=== PATIENT | female | born 1955 | race Caucasian/White ===

== ENCOUNTER 2018-10-28 12:54 | Outpatient (REF) | payer MEDICARE, OTHER, SELFPAY ==
--- NOTE | 2018-10-28 10:55 | PAPFT_PTH ---
PATIENT: Jolie Matos LOC: [facility] U#:[id number] AGE/SX: 63/F ROOM: RE10/28/[address]: DEMOND Mathew : 1955 BED: DIS: 10/28/2018 SPEC #: [id number] RECD: 10/28/18 13:13 STATUS: ADRIANA REJeny #: [id number] ADRIAN: 10/28/18 10:[address]: Anita Palmer DEPT: [facility] Cytology RECD BY: Nena Murray ENTERED: 10/28/18 13:14 SP TYPE: PAPFT ROBERT DR: Vasquez Alvarez, DO Tissues: 1 - CX/ENDOCX FOR PAP SMEARS Procedures: PAP THIN PREP/UVM Screening Comments: [id number]
== END 2018-10-28 13:14 ==
LOC: LBN 12:54
PROVIDERS: PCP Emergency Medicine; Visit Provider Nurse Practitioner Family
DX: Z12.4 Encounter for screening for malignant neoplasm of cervix (principal)
CPT/HCPCS: 88142

== ENCOUNTER 2018-11-09 00:36 | Outpatient (CLI) | payer MEDICARE, OTHER, SELFPAY ==
--- NOTE | 2018-11-09 07:30 | DI.MAMMO_ITS ---
SYMPTOM/DIAGNOSIS: SCREENING, Z12.31 MAMMOGRAMS: Mammograms were interpreted according to the usual protocol including computer analysis with CAD system, tomosynthesis and C view imaging. Comparison is made with prior examinations. Breast density, Category B. No suspicious masses or microcalcifications are seen. There is no definite evidence of malignancy. IMPRESSION: Negative mammogram. Routine screening is recommended. Category 1. MQSA ASSESSMENT OF FINDINGS: Negative. Category 1. Patient will receive a letter notifying them of these results. BI-RADS category B. There are scattered areas of fibroglandular density.
== END 2018-11-09 00:56 ==
PROVIDERS: PCP Emergency Medicine; Visit Provider Nurse Practitioner Family
DX: Z12.31 Encounter for screening mammogram for malignant neoplasm of breast (principal)
CPT/HCPCS: 77063; 77067

== ENCOUNTER 2019-05-29 20:08 | Outpatient (REF) | payer MEDICARE, OTHER, SELFPAY | END 2019-05-29 20:28 | LOC: LBN 20:08 | PROVIDERS: PCP Emergency Medicine; Visit Provider Nurse Practitioner | DX: N39.0 Urinary tract infection, site not specified (principal) | CPT/HCPCS: 87086 ==

== ENCOUNTER 2020-06-26 11:49 | Outpatient (REF) | payer MEDICARE, OTHER, SELFPAY ==
[2020-06-26 22:53] LABS: Calculated LDL 122 mg/dL (<100); Cholesterol 207 mg/dL (<200); HDL Cholesterol 66 mg/dL (40-60); Triglyceride 95 mg/dL (<150); Vitamin B12 304 pg/mL (193-986)
== END 2020-06-26 12:09 ==
LOC: LBN 11:49
PROVIDERS: PCP Emergency Medicine; Visit Provider Emergency Medicine
DX: E53.8 Deficiency of other specified B group vitamins (principal); Z00.00 Encounter for general adult medical examination without abnormal findings
CPT/HCPCS: 80061; 82607

== ENCOUNTER 2020-09-05 00:37 | Outpatient (CLI) | payer MEDICARE, OTHER, SELFPAY ==
--- NOTE | 2020-09-05 07:15 | DI.RAD_ITS ---
EXAM: XR LUMBAR SPINE COMPLETE CLINICAL HISTORY: low back pain,m53.3. TECHNIQUE: 2D digital imaging was performed. COMPARISON: No exams were available for comparison FINDINGS: There are 5 lumbar type vertebral bodies. There is normal alignment. No spondylolysis or spondyloli sthesis is present. There is disc space narrowing at L5-S1. There are endplate osteophytes at L5-S1 . Degenerative changes of the facets are present at multiple levels in the lumbar spine. No acute f racture or dislocation. The bones are normally mineralized. Surgical clips are seen in the right up per quadrant suggesting prior cholecystectomy. IMPRESSION: Mild degenerative changes in the lumbar spine. DATA REPOSITORY: RADIATION DOSE DELIVERED:
--- NOTE | 2020-09-05 07:15 | DI.RAD_ITS ---
EXAM: XR SACROILIAC JOINTS CLINICAL HISTORY: sacral pain,m53.3. TECHNIQUE: 2D digital imaging was performed. COMPARISON: No exams were available for comparison FINDINGS: BONES: No acute fracture is present. No bony destructive lesion is seen. JOINTS: Mild degenerative changes at the L5-S1 disc space. The sacroiliac joints are well maintained . No ankylosis or erosions are seen. SOFT TISSUE: Normal. IMPRESSION: Mild degenerative changes at the L5-S1 disc space. DATA REPOSITORY: RADIATION DOSE DELIVERED:
== END 2020-09-05 00:57 ==
PROVIDERS: PCP Emergency Medicine; Visit Provider Emergency Medicine
DX: M47.817 Spondylosis without myelopathy or radiculopathy, lumbosacral region (principal)
CPT/HCPCS: 72110; 72202

== ENCOUNTER 2020-11-05 00:56 | Outpatient (CLI) | payer MEDICARE, OTHER, SELFPAY ==
--- NOTE | 2020-11-05 07:30 | DI.MAMMO_ITS ---
EXAM: MG MAMMO SCREENING CLINICAL HISTORY: screening TECHNIQUE: Bilateral full field digital CC and MLO mammographic images were obtained with 3D tomosyn thesis and utilizing computer aided detection (CAD). COMPARISON: Available for comparison. FINDINGS: Masses/Architectural Distortion: None seen. Microcalcifications: No suspicious pleomorphic-type are seen. Skin Thickening/Nipple Retraction: None. IMPRESSION: 1. No significant interval change with no specific features of malignancy noted. 2. Unless there is more urgent need, screening mammography is recommended, as per [employer] guidelines. BI-RADS Category 1 - Negative Breast Density - Category B - Scattered areas of fibroglandular density Breast density category C or D implies that the patient has dense breast tissue. Dense breast tissue is very common and is not abnormal but dense breast tissue can make it harder to find cancer on a ma mmogram. Also, dense breast tissue may increase their breast cancer risk. This information about the result of the mammogram report was provided to the patient to raise their awareness. Use this report when you speak with the patient about their risks for breast cancer, which includes their family hist ory. At that time, you may recommend for more screening tests (Ultrasound or MRI) as they might be us eful based on their risk. A negative radiographic report should not delay biopsy if a dominant or clinically suspicious mass is present. Up to ten percent of cancers are not identified on mammography. A negative report may reinforce clinical impression. Adenosis and dense breasts may obscure an underlying neoplasm. False positive reports average 6 to 10%. Patient will receive a letter notifying them of these results.
== END 2020-11-05 01:16 ==
PROVIDERS: PCP Emergency Medicine; Visit Provider Nurse Practitioner Family
DX: Z12.31 Encounter for screening mammogram for malignant neoplasm of breast (principal)
CPT/HCPCS: 77063; 77067

== ENCOUNTER → 2021-07-17 10:28 | Outpatient (BNVA) | payer MEDICARE, OTHER, SELFPAY | PROVIDERS: PCP Emergency Medicine; Referring Provider Emergency Medicine; Visit Provider Physical Therapy Assistant | DX: Z12.11 Encounter for screening for malignant neoplasm of colon (principal); Z86.010 Personal history of colon polyps; Z80.0 Family history of malignant neoplasm of digestive organs ==

== ENCOUNTER 2021-07-30 02:54 | Outpatient (CLI) | payer MEDICARE, OTHER, SELFPAY ==
[2021-07-30 10:30] LABS: Source Nasal/Nares
[2021-07-30 18:14] LABS: COVID-19 PCR Negative (Negative)
== END 2021-07-30 02:55 | disposition home or self-care (01) ==
LOC: LBO 02:55
PROVIDERS: PCP Emergency Medicine; Visit Provider Surgery
DX: Z20.822 Contact with and (suspected) exposure to COVID-19 (principal); Z01.818 Encounter for other preprocedural examination
CPT/HCPCS: 87635

== ENCOUNTER 2021-08-01 07:03 | Day surgery (SDC) | payer MEDICARE, OTHER, SELFPAY ==
[2021-08-01 07:21] VITALS: BP 108/74; PULSE 66; RESP 16; TEMP 36.5; O2SAT 99
--- NOTE | 2021-08-01 07:34 | W.ANESPRE ---
General Info Date of Service Date Performed: 08/01/21 Height: 5 ft 5 in Weight: 61.6 kg Body Mass Index (BMI): 22.6 Surgical Procedure: Operation Date: 08/01/21 08:20 Proposed Procedures Side Surgeon claudia Simon, Meds Allergies and Home Medications Allergies Allergy/AdvReac Type Severity Reaction Status Date / Time MOLDS AND SMUTS Allergy Mild HEAD Uncoded 08/01/21 07:25 CONGESTION Home Medication Medication Instructions Recorded cholecalciferol (vitamin D3) 2,000 unit PO DAILY PRN 04/13/13 [Vitamin D3] multivitamin 1 tab PO DAILY 10/03/20 doxycycline monohydrate 100 mg 200 mg PO ONCE #20 tab 04/29/21 tablet fexofenadine 180 mg tablet 180 mg PO DAILY 07/03/21 bisacodyl 5 mg tablet,delayed 5 mg PO ONCE #4 tab 07/17/21 release polyethylene glycol 3350 17 238 g PO ONCE #238 g 07/17/21 gram/dose oral powder Current Visit Medications: Current Medications Generic Name Dose Route Start Last Admin Trade Name Alessandroq PRN Reason Stop Dose Admin Ringer's Solution 1,000 mls @ 80 mls/hr 08/01/21 06:00 IV 08/30/21 23:59 INFUSION RANDALL IV Miscellaneous Supplies 1 each 08/01/21 06:00 Iv Access IV 08/30/21 23:59 DIRECTED RANDALL Sodium Chloride 0 ml 08/01/21 06:00 Normal Saline Flush 10 Ml Syr IV 08/30/21 23:59 PRN PRN Sodium Chloride 0 ml 08/01/21 06:00 Normal Saline 10 Ml Vial IJ 08/30/21 23:59 DIRECTED PRN Sterile Water 0 ml 08/01/21 06:00 Water,Injection,Sterile 10 Ml Vial IJ 08/30/21 23:59 DIRECTED PRN PFSH Active Problems Active Problems: Problem Status Onset Code Sacral pain M53.3 Sciatica M54.30 Grief reaction F43.21 B12 deficiency Hx of colonic polyps Rosacea Intermittent dysphagia Anal fissure Polyp of colon 12/20/17 K63.5 Medical History Medical History Anal fissure B12 deficiency Benign breast cyst in female Grief reaction Hx of colonic polyps Intermittent dysphagia worked up at [facility] [place]- esophageal spasm Polyp of colon (12/20/17) adenamatous polyp, tubular and sessile Rosacea Sacral pain Sciatica Surgical History Surgical History section X 3 Cholecystectomy (~2011) Colonoscopy - MAC (12/20/17) 2006- adenomatous polyps 2009-nl 06/01/14; [facility] [place] Tobacco Smoking/Tobacco Use Status: Never Passive smoking exposure: Yes (as a child) Second hand exposure: Yes Alcohol Alcohol Intake: current Alcohol intake frequency: a few times a week Alcohol type: beer and wine Substance Use Substance use: Never Substance use type: does not use Vital Signs and Lab Results Vital Signs Most Recent Vital Signs in EMR: Most Recent Vital Signs Temp Pulse Resp BP Pulse Ox 36.5 C 66 16 108/74 99 08/01/21 07:21 08/01/21 07:21 08/01/21 07:21 08/01/21 07:21 08/01/21 07:21 Lab Results Blood Type / Crossmatch: No Data to Display Complete Blood Count: No Data to Display Complete Metabolic Panel: No Data to Display Liver Function Panel: No Data to Display Coagulation Panel: No Data to Display Cardiac Panel: No Data to Display Arterial Blood Gas: No Data to Display Venous Blood Gas: No Data to Display Pancreas Panel: No Data to Display Thyroid Panel: No Data to Display Infectious Disease: Coronavirus (COVID-19)(PCR) Negative (Negative) 07/30/21 08:36 07/30/21 Coronavirus 2019 Source Nasal/Nares 07/30/21 08:36 07/30/21 Blood Cultures: No Data to Display Toxicology Panel: No Data to Display Anesthesia Assessment and Plan Anesthesia History Personal History: No History of Anesthesia Complications Family History: No Family History of Anesthesia Complications Exercise Tolerance Exercise Tolerance: Metabolic Equivalents>4 Pertinent Negatives Pertinent Negatives: No Symptoms of GERD, No Major Cardiovascular Symptoms or Complaints, No Major Pulmonary Symptoms or Complaints and No History of CVA/TIA Cardiac & Pulmonary Exam Cardiac Exam: Normal S1/S2 Heart Sounds Pulmonary Exam: Clear Bilateral Breath Sounds Airway Exam Known Difficult Airway: No Mallampati Class: 1 Mouth Opening: Normal (> 3cm) Thyromental Distance: Greater than 3 cm Neck Range of Motion: Full ROM Neck Circumference: Normal Teeth Condition: Normal Dentition ASA Classification ASA Score: ASA 2 Emergency Case?: No NPO Status NPO Status: NPO Clears >2 hours, Solids >8 hours Anesthesia Plan Resuscitation Status: Full Code Anesthesia Technique: General Anesthesia Airway Planned: Natural Airway Monitors Used: Standard Monitors
[2021-08-01 07:36] VITALS: BMI 22.6
[2021-08-01] MEDS: Lactated Ringers 1,000 ML 80 ML IV (07:38)
--- NOTE | 2021-08-01 08:21 | W.COLOREPORT ---
Colonoscopy Report Date of procedure: 08/01/21 Pre-op diagnosis general: polyps Post-op diagnosis procedure note: other Surgeon: Lindsay Simon Anesthesia Type: General:No Airway Disposition: same day Prep: Miralax/Dulcolax Retraction Time: 10 Procedure Description: After informed consent was obtained the patient was taken to the procedure room and placed in a left decubitous position. Monitors were applied and a time out was done. The patients name, date of , procedure, allergies to medications and metal in their body was reviewed. The patient was then sedated. Once sedated and comfortable a rectal exam was done. External exam shows large external hemorrhoids. Internal exam revealed a normal sphincter tone and no palpable masses. The scope was then introduced and retrofelexed. Grade I internal hemorrhoids were identified. The scope was then advanced to the cecum w/out difficulty. The TI and appendiceal orifice were identified. The prep was good. The scope was then slowly retracted over 10 minutes back into the rectum. He had a few small scattered minute diverticula in the sigmoid colon. There are no signs of bleeding or infection. She did have 2 polyps that are removed with a cold biting forcep. These are 5 mm and flat polyps. There is one in the cecum and one in the rectum. All specimen is retrieved and no bleeding is noted.. The scope was removed and the patient was woken up and taken back to Same day surgery in stable condition. The patient tolerated the procedure well and there were no immediate complications. Follow up: The patient should follow up in 3-5 yrs - path pd, years unless they develop changes in bowel habits or other new gastrointestinal complaints.
--- NOTE | 2021-08-01 08:22 | PDOC.DSDIS_ITS ---
Discharge Plan Disposition Patient Disposition: HOME Condition: Good Discharge Details Reason For Visit: colon scope Attending Provider: Lindsay Simon Primary Care Provider: Vasquez Alvarez Home Meds and New Rx's Prescriptions: Discontinued bisacodyl [Dulcolax (bisacodyl)] 5 mg tablet,delayed release (DR/EC) 5 mg PO ONCE Qty: 4 RF: 0 polyethylene glycol 3350 17 gram/dose powder 238 g PO ONCE Qty: 238 RF: 0 No Action fexofenadine [Jenn Allergy] 180 mg tablet 180 mg PO DAILY RF: 0 multivitamin [Daily Multi-Vitamin] Tablet 1 tab PO DAILY RF: 0 doxycycline monohydrate 100 mg tablet 200 mg PO ONCE Qty: 20 RF: 0 cholecalciferol (vitamin D3) [Vitamin D3] 2,000 UNIT capsule 2,000 unit PO DAILY PRN RF: 0 Discharge Instructions Additional Instructions: DSU Colonoscopy Post- Op Instructions Instructions for Everyone who is given Anesthesia: For your safety, please do the following for the next twenty-four (24) hours: *Do Not operate a motor vehicle (car, truck, motorcycle, etc.) *Do Not drink alcoholic beverages or use any recreational drugs for the first 24 hours or while taking pain medications. The medications in your body may have a reaction that can be dangerous. *Do Not make any important decisions or sign any important papers. Findings: polyps diverticula- make sure you are moving your bowels on a regular basis and not straining to go to the bathroom Follow up: My office will send a letter in 2 to 3 weeks time detailing as to exactly what types of polyps they were and when we want you to repeat another colonoscopy. 1. No lifting over 20 pounds or strenuous activity for the first 24 hours after your procedure. After 24 hours there are no restrictions on your activity but you may feel fatigued for a few days. 2. After you arrive home you may have a light meal and return to your normal diet as you can tolerate it without feeling sick to your stomach. 3. You may have a bloated, gaseous feeling in your belly (abdomen) after a colonoscopy. Passing gas and belching will help. Walking or lying down on your left side with your knees flexed may relieve the discomfort. Call the office at [phone] (Office) or [phone] (Hospital) right away if you notice any of the following: a.Vomiting of blood or ?coffee ground stools?. b.Rectal bleeding 1Tbsp, blood clots or continuous bleeding. c.Severe belly (abdominal) pain. d.A hard distended belly (abdomen) and an inability to pass gas. 4. Please don?t expect to have a normal BM (bowel movement) for 2-3 days after your procedure. 5. If there are questions regarding the findings of your procedure, please contact your doctor 6. If you are unable to contact your doctor with a problem, contact the hospital at [phone]. 7. Continue all your regular medications unless directed otherwise. I understand the above instructions and have no questions. Signature of Patient or Adult Escort Name of Responsible Adult Escort Signature of Nurse Date/Time Activity:: see above Diet:: see above Discharge Orders Discharge Orders: Discharge Order (Routine); Ordered 08/01/21 Ordered By: Lindsay Simon DS: Diagnosis Discharge Diagnosis (1) Polyp of colon: Status: Acute
--- NOTE | 2021-08-01 08:35 | BOWEL_PTH ---
PATIENT: Jolie Matos LOC: [facility] U#:[id number] AGE/SX: 66/F ROOM: RE08/01/[address]: Lindsay Simon : 1955 BED: DIS: 08/01/2021 SPEC #: [id number] RECD: 08/01/21 12:28 STATUS: ADRIANA REQ #: [id number] ADRIAN: 08/01/21 08:[address]: Lindsay Simon DEPT: Surgical Specimen RECD BY: Nena Murray ENTERED: 08/01/21 12:29 SP TYPE: Bowel OTHR DR: Vasquez Alvarez DO Tissues: 1 - BIOPSY BOWEL 2 - BIOPSY BOWEL Procedures: GROSS AND MICRO LEVEL 4 Comments: [id number]
[2021-08-01 09:06] VITALS: BP 114/60; PULSE 63; RESP 18; TEMP 36.5; O2SAT 99
--- NOTE | 2021-08-01 09:15 | W.ANESPOSTOP ---
Postoperative Evaluation Date, Time and Location Date Performed: 08/01/21 Time Performed: 09:15 Patient Location: Day Surgery Unit Vital Signs Most Recent Imported Vital Signs: Most Recent Vital Signs Temp Pulse Resp BP Pulse Ox 36.5 C 63 18 114/60 99 08/01/21 09:06 08/01/21 09:06 08/01/21 09:06 08/01/21 09:06 08/01/21 09:06 Pain Score Most Recent Pain Score: Most Recent Pain Score Pain Level 0 08/01/21 09:06 Assessment Mental Status: Awake (Alert & Oriented to Patient Baseline) Airway and Respiratory Function: Patent airway with normal (patient baseline) respiratory exam Cardiovascular Function: Hemodynamically Stable Hydration Status: Adequately Hydrated Nausea & Vomiting: No Nausea or Vomiting Pain: Pt. Denies Any Pain Peripheral Nerve Block: Patient did not receive a nerve block
[2021-08-01 09:38] VITALS: BP 131/77; PULSE 57; RESP 16; TEMP 36.5; O2SAT 97
== END 2021-08-01 11:00 | disposition home or self-care (01) ==
PROVIDERS: PCP Emergency Medicine; Visit Provider Surgery
PROC: 0DJD8ZZ Inspection of Lower Intestinal Tract, Via Natural or Artificial Opening Endoscopic (ICD-10-PCS; CPT 45378; principal; 2021-08-01 08:15)
DX: Z12.11 Encounter for screening for malignant neoplasm of colon (principal); E53.8 Deficiency of other specified B group vitamins; K64.0 First degree hemorrhoids; D12.0 Benign neoplasm of cecum; Z86.010 Personal history of colon polyps; K62.1 Rectal polyp
CPT/HCPCS: 45380; 88305; J2001

== ENCOUNTER → 2021-09-01 09:50 | Outpatient (BNVA) | payer MEDICARE, OTHER, SELFPAY | PROVIDERS: PCP Emergency Medicine; Referring Provider Emergency Medicine; Visit Provider Surgery | DX: Z48.815 Encounter for surgical aftercare following surgery on the digestive system (principal); Z80.0 Family history of malignant neoplasm of digestive organs; K62.1 Rectal polyp | CPT/HCPCS: 99212 ==

== ENCOUNTER 2021-10-06 03:10 | Outpatient (CLI) | payer MEDICARE, OTHER, SELFPAY ==
[2021-10-08 10:44] LABS: Lyme Ab w Rflx to Lyme Confirm Negative (Negative)
[2021-10-08 20:24] LABS: Anaplasma phagocytophilum Negative (Negative); B. miyamotoi PCR Negative (Negative); Babesia divergens/MO-1 Negative (Negative); Babesia duncani Negative (Negative); Babesia microti Negative (Negative); Ehrlichia chaffeensis Negative (Negative); Ehrlichia ewingii/canis Negative (Negative); Ehrlichia muris eauclairensis Negative (Negative)
== END 2021-10-06 03:11 | disposition home or self-care (01) ==
LOC: LBO 03:10
PROVIDERS: PCP Emergency Medicine
DX: S30.860A Insect bite (nonvenomous) of lower back and pelvis, initial encounter (principal); W57.XXXA Bitten or stung by nonvenomous insect and other nonvenomous arthropods, initial encounter
CPT/HCPCS: 36415; 87798; 86618

== ENCOUNTER → 2022-08-21 00:45 | Outpatient (CLI) | payer MEDICARE, SELFPAY ==
--- OUTSIDE RECORDS SUMMARY | 2022-08-21 00:47 | XMS_ITS | Encounter Summary ---
:1955 Author Organization [facility] [place] [address] Care Team Providers Name Role Phone Vasquez Alvarez Primary Care Provider Encounter Details Date Type Department Care Team Description 05/08/2021 [facility] [address] [place] [address] [facility] [place] [place] [place] [address] Social History Tobacco Use Types Packs/Day Years Used Date Never Smoker Smokeless Tobacco: Never Used Alcohol Use Standard Drinks/Week Comments Yes 0 (1 standard drink = 0.6 oz pure alcoho l) Sex Assigned at Date Recorded Not on file documented as of this encounter Progress Notes Nuvia Stephen MD - 05/08/2021 8:15 AM EDT Images from the original note were not included. DATE OF SERVICE: 05/08/2021 PROVIDER: Nuvia Stephen MD Jolie Matos : 1955 PATIENT PREFERENCES: -prefers to be called: Saad MARX Jolie Matos is a 66 y.o. year old female. Here for botox procedure 05/08/2021. Date and name of most recent procedure: botox 12/25/20 Patient's impression of recent procedure experience and results: went well Concerns from previous visit?: no COSMETIC TREATMENT VISIT -Questions or concerns today? no -Any change in health or new diagnosis since last visit?: no -Any new medications?: no -Pt received pre and post instructions? yes -HSV prophylaxis? no -Stopped retinoids/ Vitamin C/ AHAs? no -Recent sun exposure? no -, lactating or trying to conceive?: no -Recent ibuprofen, aspirin, or other blood thinner? (including ginko biloba, vitamin E, fish oil) no ADR: No Known Allergies MEDS: Current Outpatient Medications Medication Sig Dispense Refill ??? tretinoin (RETIN-A) 0.025 % Cream Apply topically to face nightly (Patient not taking: Reported on 07/21/2019) 45 g PRN ??? metroNIDAZOLE (METROGEL) 0.75 % Gel Apply topically to face daily as needed 45 g prn ??? minocycline (MINOCIN;DYNACIN) 100 mg capsule Take 1 capsule by mouth 2 times daily. For 4 weeks,then one capsule once a day for 2 weeks then stop. (Patient not taking: Reported on 11/04/2018) 75 capsule 0 ??? folic acid (FOLVITE) 400 mcg tablet Take 800 mcg by mouth daily. ??? Calcium Carbonate-Vitamin D3 (CALCIUM 600 + D,3,) 600-125 mg-unit Tab Take 1 tablet by mouth daily. ??? [place]-3 Fatty Acids (FISH OIL) 500 mg Cap (Patient not taking: No sig reported) ??? Cholecalciferol, Vitamin D3, (VITAMIN D) 1,000 unit Tab ??? quiNINE 324 mg capsule 324MG = 1 Capsule(s), PO, QHS PRN ??? selenium sulfide (SELSUN) 2.5 % shampoo 1 Appl(s), Top, PRN No current facility-administered medications for this visit. EXAMINATION: -New findings: TREATMENT MAPS: 12/02/18??Botox 50 units ?02/03/2019 ?? 03/17/19??50 units botox ?07/21/19 Botox??48??units $500 ?? 11/17/19?50 units botox $500 ?04/29/20 50 units Botox $500 ?? 08/22/2020??Botox 50 units 500.00 ?12/23/2019 50 units Botox $500 ?? 05/08/2021 botox 50units $500 ? DIAGNOSIS/ASSESSMENT: # Chemoprevention/correction: Emphasized value of retinoid-based skin care system to amplify and maintain benefits of any anti aging plan/procedures. -special considerations: -retinoid:?Tretinon 0.025% cream?date started:??12/02/18, pt states she is not consistent with application -ZO skincare regimen: regimen or products:??GSR??reviewed by:??RL??date:??11/04/18?? -instructions in AVS dated??11/04/18?? -discussed importance of meticulous sun protection ?? # Botox:?? - See Treatment Map -??50??units - Pt's primary area of concern:??forehead?? - Special considerations for this pt:??none?? - quote for Botox:??$500.00 per treatment?? - Botox Before and After instructions given??07/21/19 ?? # History of Cold Sores: cutaneous and vermilion lip examined and free of any scar or active lesions - Pt reports??no??cold sores in several years - HSV prophylaxis discussed for procedures where needles or lasers are used around the mouth/lip area - patient instructed on use of valtrex before and after injectable or laser treatment involving the mouth/lip area ?? # Volume Loss and Laxity of?face - Discussed treatment options, including fillers, surgery, lasers/RF tightening and Instalift Microsuspension - Pt expresses interest in Silhouette Instalift - Special Considerations: - Patients main concern: - Pre and post instructions printed and reviewed with patient on:??02/03/2019 - Discussed alternatives to Instalift including surgery. More significant, long- lasting results can be expected from surgical lift where excess skin is removed. With microsuspension we expect subtle results to soften trouble areas. - Discussed pricing ?Quoted: ? # Facial Volume Loss: - See procedure map - Pt's primary area of concern:??Glabella - Other areas of concern: tear troughs - Special considerations:??Glabella to make Botox last - Future filler planned?:??volbella?Quote for filler plans:??$400.00 - Filler Before and After instructions given?:??yes - Filler FAQs given?:??yes - Discussed limits of filler block inserter remover combination with laser for aaron orbital area - recommended filler toelevate brow. Advised patient that plastic surgery would be more comprehensive. - Suggested cosmetic consultation for full discussion 12/25/20 # Facial Volume Loss: - See procedure map - Pt's primary area of concern: temporal area - Other areas of concern: - Special considerations: - Future filler planned?: radiesse biostim Quote for filler plans: $725 per vial ?BENIGN REMOVAL LOG ?? Date:??08/22/2020?Lesion type: SKs?Area: back?Method: Cryotherapy??Number treated: +10?Other: ?Paid:??$200?Tx By:RL ??Notes: ??Patient was given a mirror to identify the spots of concern. Patient rechecked the area and affirmed that we had addressed the lesions of concern. Patient was reminded that any future treatments for touch up or missed area would have a fee. ?? FOLLOW UP WHEN: 3-4 months FOR WHAT: botox LENGTH OF VISIT: 15 min NUMBING?: no PICTURES NEEDED? no LEVEL: 2 Notes: COSMETIC COST TODAY: $500 botox Treatment delivered by Dr. Stephen I am documenting this encounter acting as the scribe for and in the presence of Nuvia Stephen MD,Moy Ch [facility] I performed the above scribed service and agree with the accuracy of the documentation in this encounter, MD Nuvia Chavarria MD Department of Dermatology documented in this encounter Plan of Treatment Not on filedocumented as of this encounter Visit Diagnoses Diagnosis Encounter for cosmetic procedure documented in this encounter Care Teams Gasoline Truck Crane Operator Relationship Specialty Start Date End Date Vasquez Alvarez DO PCP - General 09/23/[address] [place] [address] documented as of this encounter
--- OUTSIDE RECORDS SUMMARY | 2022-08-21 00:47 | XMS_ITS | Encounter Summary ---
:1955 Author Organization [facility] [place] [address] Care Team Providers Name Role Phone Vasquez Alvarez DO Primary Care Provider Reason for Visit Reason Comments Procedure Encounter Details Date Type Department Care Team Description 08/22[facility] cosmetic procedure [address] [place] [address] [facility] [place] [address] Social History Tobacco Use Types Packs/Day Years Used Date Never Smoker Smokeless Tobacco: Never Used Alcohol Use Standard Drinks/Week Comments Yes 0 (1 standard drink = 0.6 oz pure alcoho l) Sex Assigned at Date Recorded Not on file documented as of this encounter Progress Notes Moy Ch [facility] - 08/22/2020 8:15 AM EDT See same day cosmetic note 08/22/2020 documented in this encounter Plan of Treatment Not on filedocumented as of this encounter Visit Diagnoses Diagnosis Encounter for cosmetic procedure documented in this encounter Care Teams Inventory Representative Relationship Specialty Start Date End Date Vasquez Alvarez DO PCP - General 09/23/[address] [place] [address] documented as of this encounter
--- OUTSIDE RECORDS SUMMARY | 2022-08-21 00:47 | XMS_ITS | Encounter Summary ---
:1955 Author Organization [facility] [place] [address] Care Team Providers Name Role Phone Vasquez Alvarez Primary Care Provider Reason for Visit Reason Comments Procedure Encounter Details Date Type Department Care Team Description 11/17/2019 [facility] [address] [place] [address] [facility] [place], [place] [address] Social History Tobacco Use Types Packs/Day Years Used Date Never Smoker Smokeless Tobacco: Never Used Alcohol Use Standard Drinks/Week Comments Yes 0 (1 standard drink = 0.6 oz pure alcoho l) Sex Assigned at Date Recorded Not on file documented as of this encounter Progress Notes Nuvia Stephen MD - 11/17/2019 3:00 PM EST Images from the original note were not included. DATE OF SERVICE: 11/17/2019 PROVIDER: Nuvia Stephen MD Jolie Matos : 1955 PATIENT PREFERENCES: -prefers to be called: Saad Rodriguezjeramie Matos is a 64 y.o. year old female. Here for botox procedure 11/17/2019. Date and name of most recent procedure: 07/21/2019 botox Patient's impression of recent procedure experience and results: she is happy Concerns from previous visit?: no COSMETIC TREATMENT [...] Take 1 tablet by mouth daily. ??? Cortland-3 Fatty Acids (FISH OIL) 500 mg Cap [...] units ?02/03/2019 ?? 03/17/19??50 units botox ?07/21/19 Botox 48 units $500 ?? 11/17/19 ??50 units botox $500 ?? DIAGNOSIS/ASSESSMENT: # Chemoprevention/correction: Emphasized value of retinoid-based skin care system to amplify and maintain benefits of any anti aging plan/procedures. -special considerations: -retinoid:?Tretinon 0.025% cream?date started:??12/02/18, pt states she is not consistent with application -ZO skincare regimen: regimen or products:??GSR??reviewed by:??RL??date:??11/04/18?? -instructions in AVS dated??11/04/18?? -discussed importance of meticulous sun protection ?? # Botox:?? - Done??11/04/2018?:??Y. If yes, see Treatment Map -??50??units - Pt's primary area of concern:??forehead?? - Special considerations for this pt:??none?? - quote for Botox:??$500.00 per treatment?? - Botox Before and After instructions given 07/21/19 ?? # History of Cold Sores: cutaneous [...] of concern:??Glabella - Other areas of concern: - Special considerations:??Glabella to make Botox last - Future filler planned?:??volbella?Quote for filler plans:??$400.00 - Filler Before and After instructions given?:??yes - Filler FAQs given?:??yes ?? FOLLOW UP ?WHEN: 4 months?FOR WHAT: Botox?LENGTH OF VISIT:??15?NUMBING?: no?PICTURES NEEDED? no?OK D/B?:??yes, ifjust botox?Notes: ?? COSMETIC COST TODAY: $500.00 paid upon exiting clinic today Treatment delivered by Dr. Stephen I am documenting this encounter acting as the scribe for and in the presence of Nuvia Stephen MD,WALI ARANDA LPN I performed the above scribed service and agree with the accuracy of the documentation in this encounter, MD Nuvia Chavarria MD Section of Dermatology documented in this encounter Plan of Treatment Not on filedocumented as of this encounter Visit Diagnoses Diagnosis Encounter for cosmetic procedure documented in this encounter Administered Medications Inactive Administered Medications - up to 3 most recent administrations Medication Order MAR Action Action Date Dose Rate Site Botulinum Toxin Type A SolR 50 Given 11/17/2019 5:38 PM EST 50 U nits Units 50 Units, Intramuscular, ONCE, On Wed11/17/19 at 1800, 1 dose documented in this encounter Care Teams Tuck Pointer Helper Relationship Specialty Start Date End Date Vasquez Alvarez DO PCP - General 09/23/[address] [place] [address] documented as of this encounter
--- OUTSIDE RECORDS SUMMARY | 2022-08-21 00:47 | XMS_ITS | Encounter Summary ---
:1955 Author Organization [facility] [place] [address] Care Team Providers Name Role Phone Vasquez Alvarez Primary Care Provider Encounter Details Date Type Department Care Team Description 10/09/2021 Office [facility] procedure [address] [place] [address] [facility] [place], [place] [address] Social History Tobacco Use Types Packs/Day Years Used Date Never Smoker Smokeless Tobacco: Never Used Alcohol Use Standard Drinks/Week Comments Yes 0 (1 standard drink = 0.6 oz pure alcoho l) Sex Assigned at Date Recorded Not on file documented as of this encounter Progress Notes Nuvia Stephen MD - 10/09/2021 2:45 PM EST Images from the original note were not included. DATE OF SERVICE: 10/09/2021 PROVIDER: MD Jolie Chavarria Bryce Matos : 1955 PATIENT PREFERENCES: -prefers to be called: Jolie Rodriguezjeramie Matos is a 66 y.o. year old female. Here for Botox procedure 10/09/2021. Last procedure was Botox 05/08/21 Concerns from previous visit?: None COSMETIC TREATMENT VISIT -Questions or concerns today? No -Any change in health or new diagnosis since last visit?: no -HSV prophylaxis? no -, lactating or trying to conceive?: no ADR: No Known Allergies MEDS: Current [...] Take 1 tablet by mouth daily. ??? Lannon-3 Fatty Acids (FISH OIL) 500 mg Cap [...] units 500.00 ?12/23/2019 50 units Botox $500 ? 05/08/2021 botox 50units $500 ?10/09/2021 ? DIAGNOSIS/ASSESSMENT: # Chemoprevention/correction: Emphasized value of retinoid-based skin care system to amplify and maintain benefits of any anti aging plan/procedures. -special considerations: -retinoid:?Tretinon 0.025% cream?date started:??12/02/18, pt states she is not consistent with application -ZO skincare regimen: regimen or products:??GSR??reviewed by:??RL??date:??11/04/18?? -instructions in AVS dated??11/04/18?? -discussed importance of meticulous sun protection ?? # Botox:?? -??See Treatment Map -??50??units - Pt's primary area [...] area of concern:??Glabella - Other areas of concern:??tear troughs?? - Special considerations:??Glabella to make Botox last - Future filler planned?:??volbella?Quote for filler plans:??$400.00 - Filler Before and After instructions given?:??yes - Filler FAQs given?:??yes - Discussed limits of ton container filler combination with laser for aaron orbital area - recommended filler toelevate brow. Advised patient that plastic surgery would be more comprehensive. - Suggested cosmetic consultation for full discussion 12/25/20 ? # Facial Volume Loss: - See [...] have a fee. ?? FOLLOW UP WHEN: 6 month FOR WHAT: botox LENGTH OF VISIT: 15 NUMBING?: no PICTURES NEEDED? no Notes: COSMETIC COST TODAY: $500.[address] Stephen I am documenting this encounter acting as the scribe for and in the presence of Nuvia Stephen MD, I performed the above scribed service and agree with the accuracy of the documentation in this encounter, MD Nuvia Chavarria MD Department of Dermatology documented in this encounter Plan of Treatment Not on filedocumented as of this encounter Visit Diagnoses Diagnosis Encounter for cosmetic procedure documented in this encounter Care Teams Patient Access Coordinator Relationship Specialty Start Date End Date Vasquez Alvarez DO PCP - General 09/23/[address] [place] [address] documented as of this encounter
--- OUTSIDE RECORDS SUMMARY | 2022-08-21 00:47 | XMS_ITS | Encounter Summary ---
:1955 Author Organization [facility] [place] [address] Care Team Providers Name Role Phone Vasquez Alvarez Primary Care Provider Encounter Details Date Type Department Care Team Description 04/06/2022 Office Visit Dermatology at [facility] dermatitis [address] [facility] [address] [facility] [phone] [address]-DERMATOLOGY [place] [address] Social History Tobacco Use Types Packs/Day Years Used Date Never Smoker Smokeless Tobacco: Never Used Alcohol Use Standard Drinks/Week Comments Yes 0 (1 standard drink = 0.6 oz pure alcoho l) Sex Assigned at Date Recorded Not on file documented as of this encounter Progress Notes Nuvia Stephen MD - 04/06/2022 8:30 AM EDT Images from the original note were not included. DEPARTMENT OF DERMATOLOGY [facility] Provider: Nuvia Stephen MD Patient's preferred name Jolie Preferred contact method for results []Phone []myD-H []Letter Detailed phone message OK? Are there any other people with whom we may discuss your care? Past Medical History Date, location, treatment Melanoma Dysplastic nevi SCC BCC AKs Other relevant past medical history Rosacea Seborrheic dermatitis Family History Details Melanoma NMSC Other relevant family history Social History Occupation: works at [employer] Other: Pre-Procedure Questions Details Allergy to lidocaine, epinephrine, Dermabond, chlorhexidine, or adhesives Bleeding disorder or blood thinners Pacemaker, defibrillator, deep brain stimulator, cochlear implant History of Present Illness: Jolie Matos is a 67 y.o. Patient returns to clinic today for evaluation of a rash around the eyes. She reports of redness around her eyes. She endorses a history of rosacea. Last visit at Dermatology: 04/06/2022 Last visit with this provider: 04/06/2022 Medications: Reviewed in eD-H Allergies: Reviewed in eD-H Skin Examination: Focused skin examination of the face was normal with the exception of the findings below. Assessment/Plan ??#. Periorificial Dermatitis - Scattered papules and pustules in a periocular distribution. - Consider doxycyline if needed. - Will start with minimalist skin care regimen (amlactin rapid relief and hypochlorous acid) - Start Rx: tacrolimus (Protopic) 0.1% ointment: Apply twice daily to the affected areas on the face - Advised patient to contact clinic via My- if rash does not improve. Other: ??? N/A RTC: PRN []Note routed to city secretary []Recall placed in scheduling system []Appointment scheduled at checkout Scribe attestation: Carisa Jack [facility] has performed the documentation for this encounter in the presence of and acting as a scribe for Nvuia Stephen MD. I performed the above scribed service and agree with the accuracy of the documentation in this encounter. Reviewed and signed by: Nuvia Stephen MD Dermatology [facility] documented in this encounter Plan of Treatment Not on filedocumented as of this encounter Visit Diagnoses Diagnosis Periorificial dermatitis documented in this encounter Care Teams Senior Graphic Designer Relationship Specialty Start Date End Date Vasquez Alvarez DO PCP - General 09/23/[address] [place] [address] documented as of this encounter
--- OUTSIDE RECORDS SUMMARY | 2022-08-21 00:47 | XMS_ITS | Encounter Summary ---
:1955 Author Organization [facility] [place] [address] Care Team Providers Name Role Phone AntonioVasquez Primary Care Provider Reason for Visit Reason Comments Procedure Encounter Details Date Type Department Care Team Description 02/03/[facility] cosmetic procedure [address] [place] [address] [facility]-DER[facility]OLOGY [place], [place] [address] Social History Tobacco Use Types Packs/Day Years Used Date Never Smoker Smokeless Tobacco: Never Used Alcohol Use Standard Drinks/Week Comments Yes 0 (1 standard drink = 0.6 oz pure alcoho l) Sex Assigned at Date Recorded Not on file documented as of this encounter Patient Instructions Patient InstructionsNasrin Horan LPN - 02/03/2019 3:15 PM EDT Retinoid Instructions The retinoid we have recommended is what you already have Retinoids are a class of topical prescription and [id number]-zsn-somhruc skin medications. Originally usedfor acne, they have also proven to be the most effective anti-aging ingredient available. Retinoids turn on cell function that has out with time and sun exposure. They quell inflammation, even out discoloration and help the skin to maintain clear pores. Your results will depend on your ability karon consistent and persistent with them. Your skin may protest when you start a retinoid (like muscles do when newly worked). We call this a ???retinoid reaction?? . Retinoid reactions cause dry, peeling, red skin. It's normal for the skin tofeel tighter, steam drier tender, more uneven in color and even ???older?? . This is 1) temporary (always goes away within 5 days if you stop the product) 2) desired (it is a sign of renewal and deep cleansing of the skin) and 3) delayed (it appears 3 days after you apply it). Occasionally, it causes a skin breakout or makes acne temporarily worse. With patience, persistence and a mindset of ???out with the old and in with the new?? you will be rewarded. Expect to see clearer, less sensitive skin within 6 weeks. How to Get Started: Apply a pea-sized amount to a clean, dry face and leave on overnight. Do this once, then wait 3-4 days. Most will experience some peeling on day 3 or 4. Repeat when your skin feels ready (redness and peeling have cleared). Gradually increase the frequency to every 3rd, then every other night. Your goal is 5-7 nights per week. Seasonal Factors: Retinoid reactions can be more severe in the winter. During winter you may need togo slowly and might need to ???buffer?? the skin with a moisturizer (see below). Summer months are ideal for retinoid use as long as you also wear sunscreen. You???ll get less ???sunscreen related breakouts?? if you stick with your retinoid and your skin will sustain less damage from the sun. Caution should be used to avoid the sun if you have visible irritation and peeling from a retinoid. Decrease your use in that case but still try to advance as tolerated. Caution: Retinoids are not allowed during pregancy (but can be resumed during ). Stop any retinoid 5 days before any waxing, chemical peel, facial or other skin procedure. Sensitivity: If you have trouble tolerating your retinoid, you may benefit from using a ???buffer?? on the skin before applying the retinoid. A lightweight moisturizer or a soothing serum can be layered under the tretinoin and you should try to eventually skip this step as your skin acclimates to theretinoid. Contact us if you would like suggestions for a buffer to help in your initial use of a retinoid. Silhouette Instalift???Suspension Procedure BEFORE Avoid aspirin and ibuprofen for 10 days before your procedure. Use just Acetaminophen (Tylenol) for any pain. Stop all blood thinners, including herbals or supplements, including ginko biloba, fish oil, vitaminE, nathalie???s wort, garlic and flax seed oil 7 days before your procedure. Avoid dental surgery 3 weeks before your procedure Alert your physician if you have any active dental or facial inflammation. Plan to recuperate without major social or work engagements for 5 to 7 days. Most patients are able to go back to work immediately but when bruising occurs it can be noticeable for up to a week. Avoid smoking. Smokers have poor healing and worse outcomes with skin procedures AFTER Apply cold packs after procedure to soothe tenderness and swelling. Avoid pressure on skin insertionpoints. Acetaminophen may be taken in case of pain (1-2 extra strength every 6 hours for 2-3 days as needed) Avoid Ibuprofen and aspirin for 3 days after your procedure Avoid applying makeup for at least 24 hours. Avoid heavy sun exposure (always a good idea!) for at least one week. Sleep face-up, with head elevated on pillows for 3-5 days. Do not rub face aggressively when washing, shaving and drying for 5 days; be gentle. Avoid excessive neck and facial movement for 2 weeks. Avoid high impact sports (running included) or yoga with inversions or head-down postures for 2 weeks. (Use your best judgement and avoid any activity that elicits discomfort in or pressure on treated area.) Avoid saunas for 3 weeks Avoid dental surgery for 3 weeks. Avoid facial or face-down massages and aesthetic treatments for 4 weeks. Avoid smoking. Smokers have poor healing and worse outcomes with skin procedures NOTIFY YOUR DOCTOR IF: Suture material can be felt or seen at any point of entry or exit. This can be trimmed and the opening will heal. Pain or bruising are severe and persistent. Tenderness is expected for up to 2 weeks but pain shouldimprove steadily from day 2 to 7. Asymmetry is noticeable and bothersome. Daytime: call [phone] If you believe you have an emergency after hours, call Dr. Stephen???s cell: [phone] OR follow prompts to page an cone machine feeder physician BEFORE AND AFTER INSTRUCTIONS FOR HYALURONIC TENNIS NET MAKER TREATMENTS BEFORE: ?? 2 weeks before and after your procedure: Avoid any dental procedures, especially deep cleanings or gum work. o Ten days before your procedure: Avoid medications that increase the chances of bruising. NSAID pain relievers like Aspirin, Advil, Alleve, Motrin and Ibuprofen can thin the blood, so switch to Tylenol (acetaminophen) before your appointment. Stop supplements that can make bruising worse. These include gingko biloba, ginseng, omega-3, Dodson???s Wort and vitamin E. o 24 hours before your treatment: Think twice about that glass of wine (or any form of alcohol) because it can increase your risk of bruising. o Supplements that can reduce bruising: Consider taking Arnica (one tablet the morning of your appointment and every six hours after your injections until you???re bruise-free. The pineapple-based enzyme bromelain can also help. Take 500 mg three times a day for three days after your procedure. o Plan for your results to be final at about 2 weeks. If it is your first time, plan the treatment at least 4 weeks before a big event to allow time for any needed adjustments. o Bruising and swelling are common and should be planned for. If you are treated on a Wednesday, you are likely to be able to return to social or work activities by Wednesday but it is possible for a bruise to last a full week. o Be sure you are not . o Avoid any dental cleaning or procedure 1 week before and after your procedure. AFTER: ?? For 2 weeks after your procedure: Avoid any dental procedures, especially deep cleanings or gum work. ??? Avoid facial massage. ??? Apply ice paks to the area frequently in first 12 hours after the treatment. ??? Expect swelling which ranges from subtle (Volbella, Voluma) to marked (Juvederm and Restylane) to dramatic (Restylane Silk). It will improve dramatically after the first 24 hours. Don't panic! Everyone worries initially that they were over filled, only to be reassured (and often want more) once that initial swelling goes down. ??? Avoid yoga, calisthenics (and other activities that put your heart below your head) or intense exercise until one day after your procedure. ??? Bruising is not uncommon. If it is severe please call us. Usually, it can be mostly covered withmakeup after 2 days. ??? Be patient in the first 2 weeks. Asymmetry is not uncommon as the product takes effect (don???t worry, it is rarely noticeable to others). Some patients are concerned about an uneven look in the first week, only to see it balance out completely by day 10-14 in the majority. If it remains uneven orif you are dissatisfied in any way then please call Dr. Stephen??? secretary bookkeeper at [phone] Stephen a message through [employer] documented in this encounter Progress Notes Nuvia Stephen MD - 02/03/2019 3:15 PM EDT Images from the original note were not included. DATE OF SERVICE: 02/03/2019 PROVIDER: Nuvia Stephen MD Jolie Matos : 1955 PATIENT PREFERENCES: -prefers to be called: Saad MARX Joliejeramie Matos is a 63 y.o. year old female. Here for follow up on Botox and review results procedure 02/03/2019. Date and name of most recent procedure: 12/02/18 had Botox Patient's impression of recent procedure experience and results: Pleased with results Concerns from previous visit?: None COSMETIC TREATMENT VISIT -Questions or concerns today? Would like to discuss having it touched up and to discuss Retin A -Any change in health or new diagnosis since last visit?: No -Any new medications?: No -Pt received pre and post instructions? Yes -HSV prophylaxis? No recent cold sores -Stopped retinoids/ Vitamin C/ AHAs? N/A -Recent sun exposure? No -, lactating or trying to conceive?: No -Recent ibuprofen, aspirin, or other blood thinner? (including ginko biloba, vitamin E, fish oil) No ADR: No Known Allergies MEDS: Current Outpatient Medications Medication Sig Dispense Refill ??? tretinoin (RETIN-A) 0.025 % Cream Apply topically to face nightly 45 g PRN ??? metroNIDAZOLE (METROGEL) 0.75 [...] Take 1 tablet by mouth daily. ??? Ursa-3 Fatty Acids (FISH OIL) 500 mg Cap (Patient not taking: No sig reported) ??? Cholecalciferol, Vitamin D3, (VITAMIN D) 1,000 unit Tab ??? quiNINE 324 mg capsule 324MG = 1 Capsule(s), PO, QHS PRN ??? selenium sulfide (SELSUN) 2.5 % shampoo 1 Appl(s), Top, PRN No current facility-administered medications for this visit. EXAMINATION: -New findings: TREATMENT MAPS: 12/02/18 Botox 50 units ?02/03/2019 ? DIAGNOSIS/ASSESSMENT: # Chemoprevention/correction: Emphasized value of retinoid-based skin care system to amplify and maintain benefits of any anti aging plan/procedures. -special considerations: -retinoid:?Tretinon 0.025% cream?date started:??12/02/18 -ZO skincare regimen: regimen or products:??GSR??reviewed by:??RL??date:??11/04/18?? -instructions in AVS dated??11/04/18?? -discussed importance of meticulous sun protection ?? # Botox:?? - Done??11/04/2018?: Y. If yes, see Treatment Map -??50??units - Pt's primary area of concern:??forehead?? - Special considerations for this pt:??none?? - quote for Botox:??$500.00 per treatment?? - Botox Before and After instructions given ?? # History of Cold Sores: cutaneous and vermilion lip examined and free of any scar or active lesions - Pt reports??no??cold sores per year in several years - HSV prophylaxis discussed for procedures where needles or lasers are used around the mouth/lip area - patient instructed on use of valtrex before and after injectable or laser treatment involving the mouth/lip area # Volume Loss and Laxity of face - Discussed treatment options, including fillers, surgery, lasers/RF tightening and Instalift Microsuspension - Pt expresses interest in Silhouette Instalift - Special Considerations: - Patients main concern: - Pre and post instructions printed and reviewed with patient on: 02/03/2019 - Discussed alternatives to Instalift including surgery. More significant, long- lasting results can be expected from surgical lift where excess skin is removed. With microsuspension we expect subtle results to soften trouble areas. - Discussed pricing Quoted: # Facial Volume Loss: - See procedure map - Pt's primary area of concern: Glabella - Other areas of concern: - Special considerations: Glabella to make Botox last - Future filler planned?: volbella Quote for filler plans: $400.00 - Filler Before and After instructions given?: yes - Filler FAQs given?: yes FOLLOW UP WHEN: one month FOR WHAT: Botox LENGTH OF VISIT: 15 NUMBING?: no PICTURES NEEDED? no COSMETIC COST TODAY: $400.[address] Stephen I am documenting this encounter acting as the scribe for and in the presence of Nuvia Stephen MD,Nasrin Horan LPN I performed the above scribed service and agree with the accuracy of the documentation in this encounter, MD Nuvia Chavarria MD Section of Dermatology documented in this encounter Plan of Treatment Not on filedocumented as of this encounter Visit Diagnoses Diagnosis Encounter for cosmetic procedure documented in this encounter Care Teams Platen Grinder Relationship Specialty Start Date End Date Vasquez Alvarez DO PCP - General 09/23/[address] [place] [address] documented as of this encounter
--- OUTSIDE RECORDS SUMMARY | 2022-08-21 00:47 | XMS_ITS | Encounter Summary ---
:1955 Author Organization [facility] [place] [address] Care Team Providers Name Role Phone Vasquez Alvarez DO Primary Care Provider Reason for Visit Reason Onset Date Comments Medication Refill 01/04/2019 Encounter Details Date Type Department Care Team Description 01/04/2019 Refill Dermatology at [facility] Nuvia Samayoa MD [address] [facility] [place] [address] [facility] [phone] [place], [place] [address] ( rk) Social History Tobacco Use Types Packs/Day Years Used Date Never Smoker Alcohol Use Standard Drinks/Week Comments Yes 0 (1 standard drink = 0.6 oz pure alcoho l) Sex Assigned at Date Recorded Not on file documented as of this encounter Plan of Treatment Not on filedocumented as of this encounter Visit Diagnoses Not on filedocumented in this encounter Care Teams Artisan Plasterer Relationship Specialty Start Date End Date Vasquez Alvarez DO PCP - General 09/23/[address] [place] [address] documented as of this encounter
--- OUTSIDE RECORDS SUMMARY | 2022-08-21 00:47 | XMS_ITS | Encounter Summary ---
:1955 [place] [address] Care Team Providers Name Role Phone Vasquez Alvarez DO Primary Care Provider Reason for Visit Reason Comments Genetic Evaluation Consultation (Routine) - Closed Specialty Diagnoses / Procedures Referred By Contact Refer red To Contact Hematology and Diagnoses Willams syndrome Vasquez Alvarez DO [facility] Hem Onc 3k Oncology [address] [place] [address] Phone: Fax: Referral ID Status Reason Start Date Expiration Date Visits V isits Requested Authorized [id number] Closed Consult, Test 08/14/2019 08/14/2020 12 12 & Treat PCP Updated and/or Approved Encounter Details Date Type Department Care Team Description 02/22/2020 TH Visit Hematology and Maia Rg, Adenomatous polyposis coli; (TeleHealth) Oncology at [facility] LG Family history of colon cancer [facility] YOLY Lopez HEMATOLOGY/ONCOLO [address] [place] DEPT. [phone] [facility] Social History Tobacco Use Types Packs/Day Years Used Date Never Smoker Smokeless Tobacco: Never Used Alcohol Use Standard Drinks/Week Comments Yes 0 (1 standard drink = 0.6 oz pure alcoho l) Sex Assigned at Date Recorded Not on file documented as of this encounter Progress Notes Maia Rg [facility] - 02/22/2020 9:00 AM EDT Jolie Matos was seen by RAOUL Andrews in consultation at the request of Vasquez Alvarez to advise regarding possible heritable predisposition to cancer. Due to Covid-19 restrictions this was aphone consult. I spent 25 minutes of this telephone encounter with the patient gathering medical and family historyand discussing the likelihood of a genetic predisposition to cancer and the option of genetic testing. Reason for referral/Chief complaint Personal history of colon polyps and family history of colon cancer. Medical history Cancer hx and treatment: No personal history of cancer. Has been having colonoscopies every few years since age 48. Polyps have been found on each exam, approximately 5 at age 48 (2002), 2 in 2013, 4 in 2018. Not certain how many polyps found on exams between 2002 and 2013 but she has definitely had at least between 11-20 polyps identified. 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 It sounds like the findings were multifocal, not sure if unilateral or bilateral. Age at 1st menses: ~11 years Age at 1st child: 25 Menopause status: post menopause since 2010. Oral contraceptive use: for 3 years from 1972- Hormone replacement therapy use: none Current cancer screening: Mammograms every 1-1.5 years. Last exam was normal in November 2018. Periodic skin exams in dermatology, although none recently. Family History Problem Relation Age of Onset ??? Colorectal Cancer Mother 83 ??? Hodkins Lymphoma Melanoma Sister ??? Colon Polyps Brother ??? Cancer Maternal Grandfather 68 multiple myeloma ??? Colon Polyps Maternal Aunt ??? Colorectal Cancer Paternal Uncle ??? Other Daughter 11 pheochromocytoma ??? Other Daughter teratoma Maternal ethnic background is [place]. Paternal ethnic background is [place]. Genetic risk assessment Based on personal history of multiple colon polyps and eye findings consistent with Familial Adenomatous Polyposis (FAP), the likelihood that Jolie would be found to have a mutation in a cancer predisposition gene is high enough to offer the option of genetic testing. Panel genetic testing for an inherited predisposition to cancer, including colon and other cancers was discussed. The risks, benefitsand limitations of panel genetic testing were reviewed, specifically a high rate of identifying a variant of uncertain significance, lack of knowledge of cancer risk for newly identified, moderate riskgenes included in the panel and lack of effective screening, as well as cancer risk for other cancers not observed in the family. Jolie opted for testing with [facility] Multi-Cancer Panel, a next generation sequencing panel that simultaneously analyzes 84 genes, including APC which is associated withFAP, that contribute to increased risk for cancer. Jolie gave verbal consent for testing. I will be email the consent forms to Jolie to complete andreturn to me. Testing will take approximately 3 weeks once the lab receives the sample. Jolie will be contacted via telephone once her test results become available. If positive, we will offer a follow-up appointment. At that time, we will discuss with Jolie the implications that this test result may have for her, as well as her family members. We will also provide Jolie with screening guidelines for cancer prevention and early detection, as well as answer any questions she may have. documented in this encounter Plan of Treatment Not on filedocumented as of this encounter Visit Diagnoses Diagnosis Adenomatous polyposis coli Benign neoplasm of colon Family history of colon cancer Family history of malignant neoplasm of gastrointestinal tract documented in this encounter Care Teams Residential Fee Appraiser Relationship Specialty Start Date End Date Vasquez Alvarez DO PCP - General 09/23/[address] [place] [address] documented as of this encounter
--- OUTSIDE RECORDS SUMMARY | 2022-08-21 00:47 | XMS_ITS | Encounter Summary ---
:1955 Author Organization [facility] [address] Care Team Providers Name Role Phone Vasquez Alvarez DO Primary Care Provider Encounter Details Date Type Department Care Team Description 08/17/2022 [facility] [address] [place] [address] [facility] [place], [place] [address] Social History Tobacco Use Types Packs/Day Years Used Date Never Smoker Smokeless Tobacco: Never Used Alcohol Use Standard Drinks/Week Comments Yes 0 (1 standard drink = 0.6 oz pure alcoho l) Sex Assigned at Date Recorded Not on file documented as of this encounter Progress Notes Nuvia Stephen MD - 08/17/2022 4:45 PM EDT Images from the original note were not included. PROVIDER: Nuvia Stephen MD ENGLISH DIVISION CHAIR: JENNIFER Wang Jolie Matos : 1955 PATIENT PREFERENCES: -prefers to be called: Jolie Rodriguezjeramie Matos is a 67 y.o. year old female. Here for xeomin. Concerns from previous visit?: no COSMETIC TREATMENT VISIT -Questions or concerns today? Has an area on her nasal bridge that she would like looked at, reportsits not visible today but a couple weeks ago the area was open and sore. Pt aware of need for adding on medical visit billed to insurance. -Any change in health or new diagnosis since last visit?: no -HSV prophylaxis? no -, lactating or trying to conceive?: no ADR: No Known Allergies MEDS: Current Outpatient Medications Medication Sig Dispense Refill ??? tacrolimus (Protopic) 0.1 % Ointment Apply twice daily to the affected areas on the face 60 g 3 ??? tretinoin (RETIN-A) 0.025 % Cream Apply [...] Take 1 tablet by mouth daily. ??? [place]-3 Fatty Acids (FISH OIL) 500 mg Cap (Patient not taking: No sig reported) ??? Cholecalciferol, Vitamin D3, (VITAMIN D) 1,000 unit Tab ??? quiNINE 324 mg capsule 324MG = 1 Capsule(s), PO, QHS PRN ??? selenium sulfide (SELSUN) 2.5 % shampoo 1 Appl(s), Top, PRN No current facility-administered medications for this visit. TREATMENT MAPS: 12/02/18??Botox 50 units ?02/03/2019 ?? 03/17/19??50 units botox ?07/21/19 Botox??48??units $500 ?? 11/17/19?50 units botox $500 ?04/29/20 50 units Botox $500 ?? 08/22/2020??Botox 50 units 500.00 ?12/23/2019 50 units Botox $500 ? 05/08/2021??botox 50units $500 ?10/09/2021 Xeomin ?? 04/06/2022 50??units of Xeomin $500 ?? 08/17/2022 xeomin 50 units $500 ?? DIAGNOSIS/ASSESSMENT: # Chemoprevention/correction: Emphasized value [...] soften trouble areas. - Discussed pricing ?Quoted: ?? # Facial Volume Loss: - See procedure map - Pt's primary area of concern:??Glabella - Other areas of concern:??tear troughs?? - Special considerations:??Glabella to make Botox last - Future filler planned?:??volbella?Quote for filler plans:??$400.00 - Filler Before and After instructions given?:??yes - Filler FAQs given?:??yes - Discussed limits of preservative filler machine operator combination with laser for aaron orbital area - recommended filler toelevate brow. Advised patient that plastic surgery would be more comprehensive. - Suggested cosmetic consultation for full discussion 12/25/20 ?? # Facial Volume Loss: - See procedure map - Pt's primary area of concern:??temporal area - Other areas of concern: - Special considerations: - Future filler planned?:??radiesse biostim?Quote for filler plans:??$725 per vial - Future filler planned?:??restylane (0.5 cc)?Quote for filler plans:??no quote (last discussed 04/06/2022) ?BENIGN REMOVAL LOG ?? Date:??08/22/2020?Lesion type: SKs?Area: back?Method: Cryotherapy??Number treated: +10?Other: ?Paid:??$200?Tx By:RL ??Notes: ??Patient was given a mirror to identify the spots of concern. Patient rechecked the area and affirmed that we had addressed the lesions of concern. Patient was reminded that any future treatments for touch up or missed area would have a fee. ? FOLLOW UP RETURN TO CLINIC: 4 months xeomin 15 min $500 COSMETIC COST TODAY: $500 xeomin Treatment delivered by Dr. Stephen I am documenting this encounter acting as the scribe for and in the presence of Nuvia Stephen MD, JENNIFER Wang I performed the above scribed service and agree with the accuracy of the documentation in this encounter, MD Nuvia Chavarria MD Department of Dermatology documented in this encounter Plan of Treatment Not on filedocumented as of this encounter Visit Diagnoses Diagnosis Encounter for cosmetic procedure documented in this encounter Care Teams Osd Clerk Relationship Specialty Start Date End Date Vasquez Alvarez DO PCP - General 09/23/[address] [place] [address] documented as of this encounter
--- OUTSIDE RECORDS SUMMARY | 2022-08-21 00:47 | XMS_ITS | Encounter Summary ---
:1955 Author Organization [place] [address] Care Team Providers Name Role Phone Vasquez Alvarez DO Primary Care Provider Encounter Details Date Type Department Care Team Description 06/02/2019 Hospital Encounter Gastroenterology at [facility] [place] [address] [facility] [phone] GASTROENTEROLOGY [place], [place] [address] (Wo rk) Social History Tobacco Use Types Packs/Day [...] on filedocumented in this encounter Care Teams Change Management Manager Relationship Specialty Start Date End Date Vasquez Alvarez DO PCP - General 09/23/[address] [place] [address] documented as of this encounter
--- OUTSIDE RECORDS SUMMARY | 2022-08-21 00:47 | XMS_ITS | Encounter Summary ---
:1955 Author Organization [facility] [place] [address] Care Team Providers Name Role Phone Vasquez Alvarez Primary Care Provider Reason for Visit Reason Comments Procedure Encounter Details Date Type Department Care Team Description 12/25/2020 Office [facility] [address] [place] [address] [facility] [place], [place] [address] Social History Tobacco Use Types Packs/Day Years Used Date Never Smoker Smokeless Tobacco: Never Used Alcohol Use Standard Drinks/Week Comments Yes 0 (1 standard drink = 0.6 oz pure alcoho l) Sex Assigned at Date Recorded Not on file documented as of this encounter Patient Instructions Patient InstructionsNuvia Stephen MD - 12/25/2020 8:15 AM EST Jolie, It was so nice to see you looking so good and able to look ahead to a wed this summer! Here are the recommendations I want you to have: Eye surgeons: [facility] [place]: Ezequiel Muro [phone] [facility]: Yury Sal [phone] documented in this encounter Progress Notes Nuvia Stephen MD - 12/25/2020 8:15 AM EST Images from the original note were not included. DATE OF SERVICE: 12/25/2020 PROVIDER: Nuvia Stephen MD Jolie Matos : 1955 PATIENT PREFERENCES: -prefers to be called: Saad Matos is a 65 y.o. year old female. Here for botox procedure 12/25/2020. Date and name of most recent procedure: botox 08/22/20 Patient's impression of recent procedure experience and results: pleased with results Concerns from previous visit?: no COSMETIC TREATMENT VISIT -Questions or concerns today? Options for under eye sagging? -Any change in health or new diagnosis [...] Take 1 tablet by mouth daily. ??? [place]-3 Fatty Acids (FISH OIL) 500 mg Cap (Patient not taking: No sig reported) ??? Cholecalciferol, Vitamin D3, (VITAMIN D) 1,000 unit Tab ??? quiNINE 324 mg capsule 324MG = 1 Capsule(s), PO, QHS PRN ??? selenium sulfide (SELSUN) 2.5 % shampoo 1 Appl(s), Top, PRN No current facility-administered medications for this visit. EXAMINATION: -New findings: ?? TREATMENT MAPS: 12/02/18??Botox 50 units ?02/03/2019 ?? 03/17/19??50 units botox ?07/21/19 Botox??48??units $500 ?? 11/17/19?50 units botox $500 ?04/29/20 50 units Botox $500 ?? 08/22/2020 Botox 50 units 500.00 ?12/23/2019 50 units Botox $500 ? DIAGNOSIS/ASSESSMENT: # Chemoprevention/correction: Emphasized value [...] Filler FAQs given?:??yes - Discussed limits of filter filler combination with laser for aaron orbital area - recommended filler toelevate brow. Advised patient that plastic surgery would be more comprehensive. - Suggested cosmetic consultation for full discussion 12/25/20 ?BENIGN REMOVAL LOG ?? Date: 08/22/2020 Lesion type: SKs Area: back Method: Cryotherapy Number treated: +10 Other: Paid: $200 Tx By:RL Notes: Patient was given a mirror to identify the spots of concern. Patient rechecked the area and affirmed that we had addressed the lesions of concern. Patient was reminded that any future treatments for touch up or missed area would have a fee. FOLLOW UP WHEN: 4 months FOR WHAT: botox LENGTH OF VISIT: 15 NUMBING?: no PICTURES NEEDED? no LEVEL: 3 Notes:this will be 1 month prior to her daughter's wedding COSMETIC COST TODAY: $500.00 paid in full upon exiting today. Treatment delivered by Dr. Stephen I am documenting this encounter acting as the scribe for and in the presence of Nuvia Stephen MD,Iza Edwards CMA I performed the above scribed service and agree with the accuracy of the documentation in this encounter, MD Nuvia Chavarria MD Department of Dermatology documented in this encounter Plan of Treatment Not on filedocumented as of this encounter Visit Diagnoses Diagnosis Encounter for cosmetic procedure documented in this encounter Care Teams Mental Health Clinician Relationship Specialty Start Date End Date Vasquez Alvarez DO PCP - General 09/23/[address] [place] [address] documented as of this encounter
--- OUTSIDE RECORDS SUMMARY | 2022-08-21 00:47 | XMS_ITS | Encounter Summary ---
:1955 Author Organization [facility] [place] [address] Care Team Providers Name Role Phone Antonio Vasquez BURNS Primary Care Provider Reason for Visit Reason Onset Date Comments Results 03/21/2020 Encounter Details Date Type Department Care Team Description 03/21/2020 Telephone Hematology and Oncology at [facility] Results [facility] Chris wilson HEMATOLOGY/[place] [address] DEPT. [phone] [place], [place] [address] (Wo rk) Social History Tobacco Use Types Packs/Day Years Used Date Never Smoker Smokeless Tobacco: Never Used Alcohol Use Standard Drinks/Week Comments Yes 0 (1 standard drink = 0.6 oz pure alcoho l) Sex Assigned at Date Recorded Not on file documented as of this encounter Miscellaneous Notes Telephone Encounter - Maia Rg [facility] - 03/21/2020 3:20 PM EDT This test result was discussed with the patient by phone. A copy of the test results have been scanned in the medical record and sent to Jolie. A summary of the results is provided below. Please be advised that [place] law requires that all health care workers respect the confidentiality of this information and not pass it along to other health care providers, insurance companies, or individuals without the written permission of the patient. The Familial Cancer Program welcomes any questions about these matters. Our phone number is: [phone]. On 03/11/2020, Jolie underwent genetic testing for a hereditary predisposition to cancers in eight major organ systems including breast, gynecologic, gastrointestinal, endocrine, genitourinary, skin, brain/nervous system, sarcoma and hematologic. Following are the results of this test. Result: [facility] Multi-Cancer Panel showed no mutation was detected. This means that Jolie does not carry a mutation in the genes detectable by this test. The following 84 genes were evaluated for sequence changes and exonic deletions/duplications: AIP, ALK, APC, JOEL, AXIN2, BAP1, BARD1, BLM, BMPR1A, BRCA1,BRCA2, BRIP1, CASR, CDC73, CDH1, CDK4, CDKN1B, CDKN1C, CDKN2A, (p14ARF), CDKN2A (l53VEL2I), CEBPA, CHEK2, CTNNA1, DICER1, DIS3L2, EGFR, EPCAM (Deletion/duplication testing only), FH, FLCN, GATA2, GPC3,GREM1 (Promoter region deletion/duplication testing only), HOXB13, HRAS, KIT, MAX, MEN1, MET, MITF, (c.952G>A,P.Wiw243Uvn variant only), MLH1, MSH2, MSH3, MSH6, MUTYH, NBN, NF1, NF2, NTHL1, PALB2, PDGFRA, PHOX2B, PMS2, POLD1, POLE, POT1, RIXKF9D, PTCH1, PTEN, RAD50, RAD51C, RAD51D, RB1, RECQL4, RET, RUNX1, SDHA, SDHAF2, SDHB, SDHC, SDHD, SMAD4, SMARCA4, SMARCB1, SMARCE1, STK11, SUFU, TERC, TERT, WQZK893, TP53, TSC1, TSC2, VHL, WRN, and WT1. 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 Interpretation: This test did not identify an underlying genetic cause for the personal history of colon polyps and family history of colon cancer. Possible explanations for this negative test result include: ?? Jolie's polyps and the cancer in her family may be due to non genetic, environmental causes. This test has ruled out Familial Adenomatous Polyposis also known as Litchfield syndrome. ?? There could be mutations in other cancer genes not included in this test, or in genes yet to be discovered. ?? There is a very small chance that a pathogenic variant/mutation could be missed due to limitations in the testing. Additional genetic testing for Jolie is not recommended at this time. It is unclear at this time whether the RUNX1 VUS identified in Jolie is a cancer-associated mutation or a benign change in the gene with no increased cancer risks. [facility] is continually collecting and analyzing their data, in an effort to reclassify these variants as either cancer-causing mutations or benign changes. It is important to remember that a vast majority of variants of uncertain significance are normal, benign changes in the gene. We will be contacted by the laboratory, in the future, if a reclassification is made and we would then notify Jolie. It is important that Jolie's phone number and mailing address stay updated in the [facility] system, in order for us to reach her in the future, should an amended report be issued. Family members should NOT be tested for the RUNX1 variant of uncertain significance identifiedin Jolie in order to find out their own cancer risks. Screening Recommendations Based on genetic test results and personal and/or family history, we recommend: Breast cancer screening ?? Be aware of any breast changes and share concerns with primary care provider ?? Annual clinical breast exams ??? Mammograms every 1-2 years. Ovarian cancer screening ?? We do not recommend any special screening studies in addition to an annual APPLICATION SECURITY SPECIALIST exam at this time. Colon cancer screening ?? Periodic colonoscopy screening as recommended by Jolie's stone belt sander. Skin cancer screening ?? Periodic skin exams documented in this encounter Plan of Treatment Not on filedocumented as of this encounter Visit Diagnoses Not on filedocumented in this encounter Care Teams Forestry Foreman Relationship Specialty Start Date End Date Vasquez Alvarez DO PCP - General 09/23/[address] [place] [address] documented as of this encounter
--- OUTSIDE RECORDS SUMMARY | 2022-08-21 00:47 | XMS_ITS | Encounter Summary ---
:1955 Author Organization [facility] [place] [address] Care Team Providers Name Role Phone Vasquez Alvarez DO Primary Care Provider Encounter Details Date Type Department Care Team Description 05/23/2020 Telephone Dermatology at [facility] Nuvia Samayoa MD [address] [facility] [place] [address] [facility] [phone] [place], [place] [address] (Wo rk) Social History Tobacco Use Types Packs/Day Years Used Date Never Smoker Smokeless Tobacco: Never Used Alcohol Use Standard Drinks/Week Comments Yes 0 (1 standard drink = 0.6 oz pure alcoho l) Sex Assigned at Date Recorded Not on file documented as of this encounter Miscellaneous Notes Telephone Encounter - Cherise Burks - 05/23/2020 1:07 PM EDT Patient contacted the clinic today following up regarding her treatment from 04/29. Patient paid $500for treatment on 04/29 and scheduled next visit for August. Botox visit was scheduled (cosmetic) and benign lesion removal (cosmetic) documented in this encounter Plan of Treatment Not on filedocumented as of this encounter Visit Diagnoses Not on filedocumented in this encounter Care Teams Atomic Welder Relationship Specialty Start Date End Date Vasquez Alvarez DO PCP - General 09/23/[address] [place] [address] documented as of this encounter
--- OUTSIDE RECORDS SUMMARY | 2022-08-21 00:47 | XMS_ITS | Encounter Summary ---
:1955 Author Organization [facility] [address] Care Team Providers Name Role Phone AntonioVasquez edgar Primary Care Provider Reason for Visit Reason Comments Procedure Encounter Details Date Type Department Care Team Description 04/06[facility]2022 [facility] procedure [address] [place] [address] [facility] [place], [place] [address] Social History Tobacco Use Types Packs/Day Years Used Date Never Smoker Smokeless Tobacco: Never Used Alcohol Use Standard Drinks/Week Comments Yes 0 (1 standard drink = 0.6 oz pure alcoho l) Sex Assigned at Date Recorded Not on file documented as of this encounter Patient Instructions Patient InstructionsCarisa Jack, RIBBON CUTTER - 04/06/2022 8:21 AM EDT Images from the original note were not included. NO NONSENSE SKIN CARE PLAN (FOR THE MINIMALIST) AM 1. Wash with Cerave SA Cleanser or Sebamed cleanser 2. Tone with Vashe Wound Cleanser (wipe face using a cotton round). Vashe is found on Store [employer]. Try this first. If you find it effective then you may want to purchase it in bulk, available through [employer]. They market it as a surface block cleaner but it is the same product. This wonder liquid is a wound healer, a toner and a disinfectant. It is even safe to use near and in the eyes. 3. Apply Amlactin rapid Relief. You will need only a very thin layer in warmer months. Maybe a little more in the winter. The labeling says it can increase sun sensitivity and that it should be avoidedon the face. Neither is true. Ok to skip and just use sunscreen when skin is not needing moisturization. Stinging is normal when your skin is sensitive. This will improve. 4. Sunscreen. Spf 30 or more PM Cleanse Tone Tretinoin Ok to apply Amlactin over the adapalene if you need extra moisture. This is not just for acne, in spite of how it is labeled. Retinoid Instructions The retinoid we have recommended is tretinoin Retinoids are a class of topical prescription and lkyu-iue-wxouxcm skin medications. Originally usedfor acne, they have [...] It's normal for the skin tofeel tighter, stretcher drier operator, more uneven in color and even ???older?? [...] in your initial use of a retinoid. documented in this encounter Progress Notes Nuvia Stephen MD - 04/06/2022 8:00 AM EDT Images from the original note were not included. DATE OF SERVICE: 04/06/2022 PROVIDER: MD Jolie Chavarria : 1955 PATIENT PREFERENCES: -prefers to be called: Jolie Dave Bryce Shawna is a 67 y.o. year old female. Here for Xeomin procedure 04/06/2022. Concerns from previous visit?: No COSMETIC TREATMENT VISIT -Questions or concerns today? Lesions removed from the chest, would like to consider repeat treatment. Would like to discuss treatment for chin area. Recommendations for bags under the eyes. -Any change in health or new diagnosis since last visit?: No -HSV prophylaxis? No -, lactating or trying to conceive?: No ADR: No Known Allergies MEDS: Current [...] Take 1 tablet by mouth daily. ??? [place]-3 Fatty Acids (FISH OIL) 500 mg Cap [...] 05/08/2021??botox 50units $500 ?10/09/2021 Xeomin ?? 04/06/2022 50 units of Xeomin $500 ? DIAGNOSIS/ASSESSMENT: # Chemoprevention/correction: Emphasized value [...] Filler FAQs given?:??yes - Discussed limits of bin filler combination with laser for aaron orbital [...] area would have a fee. 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 Plan to discuss filler for BO and/or increase xeomin dose to account for it next tx) COSMETIC COST TODAY: $[address] Stephen I am documenting this encounter acting as the scribe for and in the presence of Nuvia Stephen MD,Carisa Jack [facility] I performed the above scribed service and agree with the accuracy of the documentation in this encounter, MD Nuvia Chavarria MD Department of Dermatology documented in this encounter Plan of Treatment Not on filedocumented as of this encounter Visit Diagnoses Diagnosis Encounter for cosmetic procedure documented in this encounter Care Teams Child Development Specialist Relationship Specialty Start Date End Date Vasquez Alvarez DO PCP - General 09/23/[address] [place] [address] documented as of this encounter
--- OUTSIDE RECORDS SUMMARY | 2022-08-21 00:47 | XMS_ITS | Encounter Summary ---
:1955 Author Organization [facility] [place] [address] Care Team Providers Name Role Phone Vasquez Alvarez Primary Care Provider Encounter Details Date Type Department Care Team Description 04/29/2020 [facility] [address] [place] [address] [facility] [place], [place] [address] Social History Tobacco Use Types Packs/Day Years Used Date Never Smoker Smokeless Tobacco: Never Used Alcohol Use Standard Drinks/Week Comments Yes 0 (1 standard drink = 0.6 oz pure alcoho l) Sex Assigned at Date Recorded Not on file documented as of this encounter Progress Notes Nuvia Stephen MD - 04/29/2020 4:15 PM EDT Images from the original note were not included. DATE OF SERVICE: 04/29/2020 PROVIDER: MD Jennifer Chavarriajeramie Matos : 1955 PATIENT PREFERENCES: -prefers to be called: Saad Rodriguezjeramie Matos is a 65 y.o. year old female. Here for botox procedure 04/29/2020. Date and name of most recent procedure: botox 11/17/19 Patient's impression of recent procedure experience and results: went well Concerns from previous visit?: none COSMETIC TREATMENT VISIT -Questions or concerns today? none -Any change in health or new diagnosis [...] Take 1 tablet by mouth daily. ??? [place]-3 Fatty Acids (FISH OIL) 500 mg Cap [...] 03/17/19??50 units botox ?07/21/19 Botox??48??units $500 ?? 11/17/19 ??50 units botox $500 ?04/29/20 50 units Botox $500 DIAGNOSIS/ASSESSMENT: # Chemoprevention/correction: Emphasized value of retinoid-based [...] After instructions given?:??yes - Filler FAQs given?:??yes ? FOLLOW UP WHEN: 4 months FOR WHAT: botox LENGTH OF VISIT: 15 NUMBING?: no PICTURES NEEDED? no LEVEL: 2 Notes:please room patient STANISLAV due to wait today FOLLOW UP WHEN: same day FOR WHAT: cosmetic SK tx LENGTH OF VISIT: 15 NUMBING?: no PICTURES NEEDED? no NOTES:needs quote LEVEL: 3 COSMETIC COST TODAY: $500 routed to dental professional to collect payment over the phone. Treatment delivered by Dr. Stephen I am documenting this encounter acting as the scribe for and in the presence of Nuvia Stephen MD,Iza Edwards [facility] I performed the above scribed service [...] Dose Rate Site Botulinum Toxin Type A Given 05/01/2020 7:54 AM 50 Units 20-Other (document SolR 50 Units EDT in comment sect ion) 50 Units, Intramuscular, ONCE, On 04/29/20 at 1745, 1 dose documented in this encounter Care Teams Production Laborer Relationship Specialty Start Date End Date Vasquez Alvarez DO PCP - General 09/23/[address] [place] [address] documented as of this encounter
--- OUTSIDE RECORDS SUMMARY | 2022-08-21 00:47 | XMS_ITS | Encounter Summary ---
:1955 Author Organization [facility] [place] [address] Care Team Providers Name Role Phone Vasquez Alvarez DO Primary Care Provider Reason for Visit Reason Onset Date Comments Prior Authorization 06/02/2022 tacrolimus (Protopic ) 0.1 % Ointment Encounter Details Date Type Department Care Team Description 06/02[facility]20[facility] Author[facility] JENNIFER Silva (tacrolimus (Protopic) [address] 0.1 % Ointment //) [place] [address] Social History Tobacco Use Types Packs/Day Years Used Date Never Smoker Smokeless Tobacco: Never Used Alcohol Use Standard Drinks/Week Comments Yes 0 (1 standard drink = 0.6 oz pure alcoho l) Sex Assigned at Date Recorded Not on file documented as of this encounter Miscellaneous Notes Telephone Encounter - Rian Salazar CCMA - 06/02/2022 10:01 AM EDT Images from the original note were not included. 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
--- OUTSIDE RECORDS SUMMARY | 2022-08-21 00:47 | XMS_ITS | Encounter Summary ---
:1955 Author Organization [facility] [place] [address] Care Team Providers Name Role Phone Vasquez Alvarez DO Primary Care Provider Encounter Details Date Type Department Care Team Description 01/02/2019 Telephone Dermatology at [facility] Nuvia Samayoa MD [address] [facility] [place] [address] [facility] [phone] [place], [place] [address] (Wo rk) Social History Tobacco Use Types Packs/Day Years Used Date Never Smoker Alcohol Use Standard Drinks/Week Comments Yes 0 (1 standard drink = 0.6 oz pure alcoho l) Sex Assigned at Date Recorded Not on file documented as of this encounter Miscellaneous Notes Telephone Encounter - July Wright - 01/02/2019 1:26 PM EST Jolie Matos states that she needs another prescription of her tretinoin sent to the [facility] in [facility] as the other prescription has '' and the pharmacy wont honor it. documented in this encounter Plan of Treatment Not on filedocumented as of this encounter Visit Diagnoses Not on filedocumented in this encounter Care Teams Manager Cardiovascular Relationship Specialty Start Date End Date Vasquez Alvarez DO PCP - General 09/23/[address] [place] [address] documented as of this encounter
--- OUTSIDE RECORDS SUMMARY | 2022-08-21 00:47 | XMS_ITS | Clinical Summary ---
:1955 Author Organization [facility] [place] [address] Care Team Providers Name Role Phone AntonioVasquez Primary Care Provider Allergies No known active allergies Medications Medication Sig Dispensed Refills Start Date End Date Status selenium sulfide 1 Appl(s), Top, 0 06/17/2006 Active (SELSUN) 2.5 % shampoo PRN [place]-3 Fatty Acids 0 11/30/2006 Active (FISH OIL) 500 mg Cap Cholecalciferol, 0 11/30/2006 Ac tive Vitamin D3, (VITAMIN D) 1,000 unit Tab quiNINE 324 mg capsule 324MG = 1 0 11/30/2006 Active Capsule(s), PO, QHS PRN folic acid (FOLVITE) Take 800 mcg by 0 Active 400 mcg tablet mouth daily. Calcium Take 1 tablet by 0 Act nicolette Carbonate-Vitamin D3 mouth daily. (CALCIUM 600 + D,3,) 600-125 mg-unit Tab minocycline Take 1 capsule by 75 capsule 0 01/02/2013 Active (MINOCIN;DYNACIN) 100 mouth 2 times mg capsule daily. For 4 weeks, then one capsule once a day for 2 weeks then stop. Additional Information Patient not taking. Reported on 11/04/2018 metroNIDAZOLE (METROGEL) 0.75 % Apply topically to face 45 g 11/07/2018 Active GelIndications: Rosacea daily as needed tretinoin (RETIN-A) 0.025 % Apply topically to face 45 g 01/06/2019 Active CreamIndications: Encounter for nightly cosmetic procedure Additional Information Patient not taking. 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 Family history of malignant melanoma 01/02/2013 Seborrheic dermatitis 06/29/2011 Rosacea 06/26/2011 Encounters Date Type Specialty Care Team Description 08/17/2022 Office Visit Dermatology Nuvia Stephen MD [facility] for cosmetic procedure 06/02/2022 Telephone Dermatology Rian Salazar, Prior Authorization CCMA (tacrolimus (Pr otopic) 0.1 % Ointment //) from Last 3 Months Immunizations Name Administration Dates Next Due Td, adult 05/14/2003 Family History Medical History Relation Comments Colon Polyps Brother Other Daughter 1 pheochromocytoma Other Daughter 2 teratoma Colon Polyps Maternal Aunt Cancer Maternal Grandfather multiple myeloma Colorectal Cancer Mother Colorectal Cancer Paternal Uncle Lymphoma Sister hodgkins Melanoma Sister Relation Status Comments Brother Daughter 1 Daughter 2 Maternal Aunt Maternal Grandfather Mother Paternal Uncle Sister Social History Tobacco Use Types Packs/Day Years Used Date Never Smoker Smokeless Tobacco: Never Used Alcohol Use Standard Drinks/Week Comments Yes 0 (1 standard drink = 0.6 oz pure alcoho l) Sex Assigned at Date Recorded Not on file Last Filed Vital Signs Vital Sign Reading Time Taken Comments Blood Pressure 92/52 06/01/2014 10:06 AM EDT Pulse 50 06/01/2014 10:06 AM EDT Temperature 36.4 ??C (97.5 ??F) 06/01/2014 7:28 AM EDT Respiratory Rate 18 06/01/2014 10:06 AM EDT Oxygen Saturation 97% 06/01/2014 10:06 AM EDT Inhaled Oxygen Concentration - - Weight 64.4 kg (142 lb) 06/01/2014 7:28 AM EDT Height - - Body Mass Index - - Plan of Treatment Health Maintenance Due Date Last Done Comments Covid-19 Vaccine (#1) 1955 Hepatitis C Screening 1971 Tdap adult 1972 Breast Cancer Share Decision Needed 1993 Breast Cancer screening 2003 Zoster vaccine (1 of 2) 2003 Advance Directive 2008 Tetanus vaccine 05/14/2013 05/14/2003 Bone Density Scan 2018 Pneumoccocal Vaccine: 65+ (1 - PCV) 2018 Colonoscopy 06/01/2019 06/01/2014, 06/01/2014 Influenza (Flu) vaccine (1 of - 07/02/2022 Influenza standard series) Insurance Payer Benefit Plan / Subscriber ID Effective Dates Phone Addre ss Type Group CIGNA MANAGED CIGNA TRUE [id number] 2018-Carol [phone] PO SARI X MEDICARE CHOICE MANAGED t 8 [id number] [place] [address] Care Teams Sofa Cover Inspector Relationship Specialty Start Date End Date Vasquez Alvarez DO PCP - General 09/23/[address] [place], [place] [id number]
--- OUTSIDE RECORDS SUMMARY | 2022-08-21 00:47 | XMS_ITS | Encounter Summary ---
:1955 Author Organization [facility] [place] [address] Care Team Providers Name Role Phone Vasquez Alvarez Primary Care Provider Reason for Visit Reason Comments Procedure Encounter Details Date Type Department Care Team Description 12/02/2018 Office Visit Dermatology at Nuvia Benites E ncounter [facility] cosmetic procedure [address] [place] [address] [facility] [place], [place] [address] Social History Tobacco Use Types Packs/Day Years Used Date Never Smoker Alcohol Use Standard Drinks/Week Comments Yes 0 (1 standard drink = 0.6 oz pure alcoho l) Sex Assigned at Date Recorded Not on file documented as of this encounter Progress Notes Nuvia Stephen MD - 12/02/2018 4:30 PM EST Images from the original note were not included. Date of service: 12/02/2018 Provider: MD Jolie Chavarria Bryce Matos : 1955 PATIENT PREFERENCES: -prefers to be called: Jolie Rodriguezjeramie Matos is a 63 y.o. year old female. Here for botox COSMETIC TREATMENT VISIT -Questions or concerns today? no -Any change in health or new diagnosis since last visit?: no -Any new medications?: no -Pt received pre and post instructions? yes -HSV prophylaxis? No -Stopped retinoids/ Vitamin C/ AHAs? no -Recent sun exposure? no -Recent ibuprofen, aspirin, or other blood thinner? (including ginko biloba, vitamin E no ADR: No Known Allergies MEDS: Current Outpatient Medications Medication Sig Dispense Refill ??? metroNIDAZOLE (METROGEL) 0.75 % Gel Apply [...] Take 1 tablet by mouth daily. ??? [place]-3 Fatty Acids (FISH OIL) 500 mg Cap (Patient not taking: No sig reported) ??? Cholecalciferol, Vitamin D3, (VITAMIN D) 1,000 unit Tab ??? quiNINE 324 mg capsule 324MG = 1 Capsule(s), PO, QHS PRN ??? selenium sulfide (SELSUN) 2.5 % shampoo 1 Appl(s), Top, PRN No current facility-administered medications for this visit. EXAMINATION: -New findings: TREATMENT MAPS: 12/02/18 Botox 50 units DIAGNOSIS/ASSESSMENT: # Chemoprevention/correction: Emphasized value of retinoid-based skin care system to amplify and maintain benefits of any anti aging plan/procedures. -special considerations: -retinoid: Tretinon 0.025% cream date started: 12/02/18 -ZO skincare regimen: regimen or products: GSR reviewed by: RL date: 11/04/18 -instructions in AVS dated 11/04/18 -discussed importance of meticulous sun protection ?? # Botox: - Done 11/04/2018?: Y. If yes, see Treatment Map - 50 units - Pt's primary area of concern: forehead - Special considerations for this pt: none - quote for Botox: $500.00 per treatment - Botox Before and After instructions given ?? # History of Cold Sores: cutaneous and vermilion lip examined and free of any scar or active lesions - Pt reports no cold sores per year in several years - HSV prophylaxis discussed for procedures where needles or lasers are used around the mouth/lip area - patient instructed on use of valtrex before and after injectable or laser treatment involving the mouth/lip area FOLLOW UP WHEN: 2 weeks FOR WHAT: Botox follow up cigarette machine filler glabella LENGTH OF VISIT: 15 NUMBING?: yes for cigarette machine filler glabella PICTURES NEEDED? yes Cosmetic cost today: $500.[address] Stephen I am documenting this encounter acting as the scribe for and in the presence of Nuvia Stephen MD,WALI ARANDA LPN I performed the above scribed service and agree with the accuracy of the documentation in this encounter, MD uNvia Chavarria MD Section of Dermatology documented in this encounter Plan of Treatment Not on filedocumented as of this encounter Visit Diagnoses Diagnosis Encounter for cosmetic procedure documented in this encounter Administered Medications Inactive Administered Medications - up to 3 most recent administrations Medication Order MAR Action Action Date Dose Rate Site Botulinum Toxin Type A SolR 50 Given 12/02/2018 5:32 PM EST 50 U nits Units 50 Units, Intramuscular, ONCE, On Wed12/02/18 at 1800, 1 dose documented in this encounter Care Teams Automatic Wheel Line Operator Relationship Specialty Start Date End Date Vasquez Alvarez DO PCP - General 09/23/[address] [place] [address] documented as of this encounter
--- OUTSIDE RECORDS SUMMARY | 2022-08-21 00:47 | XMS_ITS | Encounter Summary ---
:1955 Author Organization [facility] [address] Care Team Providers Name Role Phone AntonioVasquez Primary Care Provider Reason for Visit Reason Comments Procedure Encounter Details Date Type Department Care Team Description 07/21/2019 [facility] cosmetic procedure [address] [place] [address] [facility] [place], [place] [address] Social History Tobacco Use Types Packs/Day Years Used Date Never Smoker Smokeless Tobacco: Never Used Alcohol Use Standard Drinks/Week Comments Yes 0 (1 standard drink = 0.6 oz pure alcoho l) Sex Assigned at Date Recorded Not on file documented as of this encounter Patient Instructions Patient InstructionsIza Edwards CCMA - 07/21/2019 3:00 PM EDT BOTOX BEFORE AND AFTER INSTRUCTIONS BEFORE: o Ten days before your procedure: Avoid medications that increase the chances of bruising. NSAID pain relievers like Aspirin, Advil, Alleve, Motrin and Ibuprofen can thin the blood, so switch to Tylenol (acetaminophen) before your appointment. Stop supplements that can make bruising worse. These include gingko biloba, ginseng, omega-3, Rosendo???s Wort and vitamin E. o 24 hours [...] o Plan for your results to be maximal at 2 weeks. If it is your first time, plan the treatment at least 4 weeks before a big event to allow time for any needed adjustments. o Most patients are able to return to work immediately after the procedure and need not make any changes to their social engagements. o Be sure you are not . AFTER: ??? Avoid facial massage for 2 hours. ??? Make exaggerated expressions, frequently in the hour immediatly after your procedure. We believethis enhances uptake of the product ??? Avoid yoga, calisthenics (and other activities that put your heart below your head) or intense exercise until one hour after your procedure. If you absolutely have to exercise is not harmful after botox, it simply may increase the chance of a visible bruise. ??? Do not get that night. *See note ??? Be patient in the first 2 [...] any way then please call Dr. Stephen??? corporate legal secretary at [phone] Stephen a message through [facility] *Note: Your body is very mildly and very briefly exposed to Botox systemically after injection. For this reason, experts recommend that you do not conceive within 24 hours of the procedure. After that brief window, the toxin has a localized effect on the nerve and is not active throughout the body. There are no adverse events associated with this brief systemic effect. Many women get treated before they conceive and enjoy the benefits of Botox for the first part of their until the ??? glow?? kicks in! documented in this encounter Progress Notes Nasrin Horan LPN - 07/21/2019 3:00 PM EDT botox Nuvia Stephen MD - 07/21/2019 3:00 PM EDT Images from the original note were not included. DATE OF SERVICE: 07/21/2019 PROVIDER: MD Jennifer Chavarriajeramie Matos : 1955 PATIENT PREFERENCES: -prefers to be called: Saad MARX Joliejeramie Matos is a 64 y.o. year old female. Here for botox procedure 07/21/2019. Date and name of most recent procedure: botox 03/17/19 Patient's impression of recent procedure experience and [...] Take 1 tablet by mouth daily. ??? [place]-3 Fatty Acids (FISH OIL) 500 mg Cap (Patient not taking: No sig reported) ??? Cholecalciferol, Vitamin D3, (VITAMIN D) 1,000 unit Tab ??? quiNINE 324 mg capsule 324MG = 1 Capsule(s), PO, QHS PRN ??? selenium sulfide (SELSUN) 2.5 % shampoo 1 Appl(s), Top, PRN No current facility-administered medications for this visit. EXAMINATION: -New findings: TREATMENT MAPS: 12/02/18??Botox 50 units ?02/03/2019 ?? 03/17/19 50 units botox ?07/21/19 Botox 48 units $500 ?? DIAGNOSIS/ASSESSMENT: # Chemoprevention/correction: Emphasized [...] FOLLOW UP WHEN: 4 months FOR WHAT: Botox LENGTH OF VISIT: 15 NUMBING?: no PICTURES NEEDED? no OK D/B?: yes, if just botox Notes: ?? COSMETIC COST TODAY: $500.00 paid upon exiting clinic today Treatment delivered by Dr. Stephen I am documenting this encounter acting as the scribe for and in the presence of Nuvia Stephen MD,Iza Edwards [facility] I performed the above scribed service and [...] Rate Site Botulinum Toxin Type A Given 07/21/2019 5:09 PM 50 Units 20-Other (document SolR 50 Units EDT in comment sect ion) 50 Units, Intramuscular, ONCE, On Wed07/21/19 at 1715, 1 dose documented in this encounter Care Teams Hand Etcher Relationship Specialty Start Date End Date Vasquez Alvarez DO PCP - General 09/23/[address] [place] [address] documented as of this encounter
--- OUTSIDE RECORDS SUMMARY | 2022-08-21 00:48 | XMS_ITS | Encounter Summary ---
:1955 Author Organization [facility] [place] [address] Care Team Providers Name Role Phone Vasquez Alvarez DO Primary Care Provider Reason for Visit Reason Comments Rosacea Encounter Details Date Type Department Care Team Description 01/02/2013 Office Visit Dermatology Patrick Peralta Rosacea (Primary Dx); [address] [facility] Perioral dermatitis; [address] [facility] Family history of malignant melanoma [place], [place] DERMATOLOGY [id number] [place] [id number] [phone] (Wo rk) Social History Tobacco Use Types Packs/Day Years Used Date Never Smoker Sex Assigned at Date Recorded Not on file documented as of this encounter Progress Notes Patrick Peralta MD - 01/02/2013 9:24 AM EST Problem is: 1. Skin checkup, q.two years. 2. Rosacea on p.r.n. metronidazole 0.75% gel. 3. History of malignant melanoma in sister who is alive and well. 4. Mild seborrhea. Jolie follows up and is doing well. She would like to have some lesions on her left flank treated. She has been under a lot of stress recently with her mother whose health is failing and has noted erythematous papules that come and go on the lower eyelid. MetroGel helps, but then they come back right away again. Physical examination today reveals a pleasant 57-year-old woman who has no active rosacea but papules consistent with periorbital dermatitis on the left lower eyelid. 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 She continues to have a 7-mm erythematous compound versus intradermal nevus on the left upper lateral arm. Her seborrheic dermatitis today is relatively mild in the external auditory canals and the posterior auricular scalp and in the occipital and lower temporal scalp area. Assessment and Plan: 1. Rosacea. a. Continue metronidazole 0.75% gel, applying to face p.r.n. after washing. 30 gram tube dispensed with p.r.n. refills. The patient prefers the small tube size. 2. Periorbital dermatitis. a. Recommend course of minocycline 50 mg one p.o. b.i.d. for four weeks, one p.o. q.day for two weeks, then discontinue. #75 dispensed with zero refills. 3. Family history of malignant melanoma in sister. a. Patient reassured about benign examination today. b. Continue sun avoidance precautions. c. Return to clinic in two years for repeat check. 4. Seborrheic dermatitis, scalp. a. Continue to recommend p.r.n. use of 1% hydrocortisone cream to affected areas and antiseborrheic shampoo. 5. Irritated seborrheic keratoses/rogers red hemangioma. a. Site of rogers red hemangioma was anesthetized and electrodesiccated; sub Ks were treated with LN2 times two. Return to clinic here in another two years for repeat check. Return to clinic reminder two years. documented in this encounter Plan of Treatment Not on filedocumented as of this encounter Visit Diagnoses Diagnosis Rosacea - Primary Perioral dermatitis Rosacea Family history of malignant melanoma Family history of other specified malign ant neoplasm documented in this encounter Care Teams Pie Bottomer Relationship Specialty Start Date End Date Vasquez Alvarez DO PCP - General 09/23/[address] [place] [address] documented as of this encounter
--- OUTSIDE RECORDS SUMMARY | 2022-08-21 00:48 | XMS_ITS | Encounter Summary ---
:1955 Author Organization [facility] [place] [address] Care Team Providers Name Role Phone Vasquez Alvarez DO Primary Care Provider Encounter Details Date Type Department Care Team Description 06/26/2011 Abstract Dermatology Aby Tariq, RN [address] [place], [place] [address] Social History Tobacco Use Types Packs/Day Years Used Date Never Assessed Sex Assigned at Date Recorded Not on file documented as of this encounter Plan of Treatment Not on filedocumented as of this encounter Visit Diagnoses Not on filedocumented in this encounter Care Teams Auto Locator Relationship Specialty Start Date End Date Vasquez Alvarez DO PCP - General 09/23/[address] [place], [place] [address] documented as of this encounter
--- OUTSIDE RECORDS SUMMARY | 2022-08-21 00:48 | XMS_ITS | Encounter Summary ---
:1955 Author Organization [facility] [place] [address] Care Team Providers Name Role Phone Antonio Vasquez BURNS Primary Care Provider Encounter Details Date Type Department Care Team Description 06/01/2014 Hospital Encounter Gastroenterology at [facility] Fermin Givens [facility] [place] [address] [place] [address] GASTROENTEROLOGY [place], [place] [address] (Wo rk) Social History Tobacco Use Types Packs/Day Years Used Date Never Smoker Alcohol Use Standard Drinks/Week Comments Yes 0 (1 standard drink = 0.6 oz pure alcoho l) Sex Assigned at Date Recorded Not on file documented as of this encounter Last Filed Vital Signs Vital Sign Reading [...] - - Body Mass Index - - documented in this encounter Discharge Instructions Discharge InstructionsBushra Perez RN - 06/01/2014 10:06 AM EDT Please call [phone], before 5pm with problems, questions or concerns, after 5pm call the Hospital at [phone] and ask to speak to the Columnist almond blancher hand and the booster operator will contact that person for you. Discharge instructions reviewed with patient who expresses understanding. You may have received medications before and/or during your procedure which effects your judgement and reaction time. Do not drive, operate machinery, drink alcoholic beverages or make important decisions for 24 hours. Be careful on stairs as you may be unsteady on your feet. You may eat a regular diet as tolerated. Do not smoke if you are alone. IV site: Slight redness or tenderness is normal, you can use a warm compress if you would like. If tenderness and/or redness increase or if foul drainage occurs, please contact your Doctor. AttachmentsThe following attachments cannot be sent through Care Everywhere. COLONOSCOPY : POSTOP (TAIWANESE)documented in this encounter Medications at Time of Discharge Medication Sig Dispensed Refills Start Date End Date minocycline Take 1 capsule by 75 capsule 0 01/02/2013 (MINOCIN;DYNACIN) 100 mg mouth 2 times daily. capsule For 4 weeks, then one capsule once a day for 2 weeks then stop. folic acid (FOLVITE) 400 Take 800 mcg by 0 mcg tablet mouth daily. Calcium Take 1 tablet by 0 Carbonate-Vitamin D3 mouth daily. (CALCIUM 600 + D,3,) 600-125 mg-unit Tab Pelham-3 Fatty Acids 0 11/30/2006 (FISH OIL) 500 mg Cap Cholecalciferol, Vitamin 0 11/30/2006 D3, (VITAMIN D) 1,000 unit Tab quiNINE 324 mg capsule 324MG = 1 0 11/30/2006 Capsule(s), PO, QHS PRN selenium sulfide 1 Appl(s), Top, PRN 0 06/17/2006 (SELSUN) 2.5 % shampoo metroNIDAZOLE (METROGEL) Apply 1 applicator 45 g 0 11/04/2018 0.75 % gel topically See Admin Instructions. documented as of this encounter H&P Notes Fermin Givens MD - 06/01/2014 8:10 AM EDT Patient Name: Jolie Matos Patient Age: 59 y.o. Birthdate: 1955 Admit date: 06/01/2014 Attending Physician: Fermin Givens MD Gastroenterology & Hepatology Pre-Procedure History and Physical Planned Procedure: Colonoscopy: Indication: family history of colon cancer, personal history of adenomatous polyps Patient Active Problem List Diagnosis Code ??? Rosacea 695.3 ??? Seborrheic dermatitis 690.10 ??? Perioral dermatitis 695.3 ??? Family history of malignant melanoma V16.8 Medications: Reviewed in EDH No Known Allergies Social History/Family History: Reviewed in EDH. No changes Exam: Filed Vitals: 06/01/14 0728 BP: 111/65 Pulse: 50 Temp: 36.4 ??C (97.5 ??F) Resp: 16 GEN: NAD, AAOX3 HEENT: NC/AT dryMM, anicteric Chest: CTAB Heart: RRR, nl s1, s2 Abdomen: normal bowel sounds, soft, non tender Assessment and Plan: Proceed with Colonoscopy: ASA Grade: ASA 1 - Normal health patient Sedation plan: Moderate Conscious sedation Risks and benefits of the procedure were discussed with the patient. Consent has been signed. documented in this encounter Miscellaneous Notes Miscellaneous - Provider, Scanning - 06/01/2014 9:35 PM EDT Miscellaneous - Provider, Scanning - 06/01/2014 2:46 PM EDT Op Note - Fermin Givens MD - 06/01/2014 11:[address] [facility] Operative Note Patient Name: Jolie Matos : [id number] MR#: [id number] Case Date: 06/01/2014 Surgeon: Surgeon(s) and Role: * Fermin Givens MD - Primary Procedure(s): COLONOSCOPY, DIAGNOSTIC Full procedure note is documented under the Procedure section of eDH. documented in this encounter Plan of Treatment Not on filedocumented as of this encounter Procedures Procedure Name Priority Date/Time Associated Comments Diagnosis SURGICAL PATHOLOGY Routine 06/01/2014 10:05 Resul ts for this REPORT AM EDT procedure are i n the results section. SPECIMEN TO PATHOLOGY Routine 06/01/2014 10:05 Re sults for this AM EDT procedure are i n the results section. SPECIMEN TO PATHOLOGY Routine 06/01/2014 10:05 Re sults for this AM EDT procedure are i n the results section. COLONOSCOPY, 06/01/2014 9:02 AM 5 yr surv. from DIAGNOSTIC EDT 02/07/09 COLONOSCOPY Routine 06/01/2014 8:19 AM Results f or this EDT procedure are i n the results section. documented in this encounter Results Surgical Pathology Report (06/01/2014 10:05 AM EDT) [facility] Method Time Signature Surgical CERNER Pathology ? [facility] Report ? Provider: ?? FERMIN GIVENS ??Pt. Name: ?? JOLIE MATOS Bryce ? Acc #: ?[id number] ?Pt. MRN: ?[id number] ? Col Date: ?? 06/01/2014 ?/Sex: ?1955,(59 years),Female ? Rec Date: ?? 06/01/2014 ?LOC: ?4T ? SURGICAL PATHOLOGY ? ---Pathologic Diagnosis--- ? Endoscopic biopsies - ? A. Hyperplastic polyp. ? B. Hyperplastic polyp. ? Cr-PX ? 06/04/14 ? AAS ? 06/04/14 Verified by: ? Erika LESTER, Franklin Titus ? Pathologist ? (Electronic Si gnature) ? The attending pathologist whose signature appears o n this report has ? reviewed all diagnostic slides and has edited the gracie ss and/or ? microscopic portion of the report in rendering the fi nal pathologic ? diagnosis. ? ---Gross Description--- ? A - Labeled/Fixative: Small sessile sigmoid polyp (cold biopsy), formalin. ? Quantity/Size: Single, 0.4 cm. ? Tissue Description: Soft, pink tissue. ? Sections/Processing: (T1) ? B - Labeled/Fixative: Small rectal polyp, likely HP, formalin. ? Quantity/Size: Two, averaging 0.3 cm. ? Tissue Description: Soft, pink tissues. ? Sections/Processing: (T1) ??sns ? ---Clinical Information--- ? Specimen Submitted: ? A - Small sessile sigmoid polyp (cold biopsy) ? B - Small rectal polyp, likely HP ? Clinical History: ? History of TA and HP ? Clinical Diagnosis: ? Same Specimen (Source) Anatomical Collection Method Collection Time Re ceived Time Location / / Volume Laterality 06/01/2014 10:05 AM EDT Fermin Givens MD PATHOLOGY/CYTOLOGY ORDERABLE S Performing Organization Address City/State/[place] [address] VICTOR HUGO NOVAK Specimen to Pathology (surgical or derm) (06/01/2014 10:05 AM EDT) Specimen Anatomical Collection Method Collection Time Receive d Time (Source) Location / / Volume Laterality AP Specimen 06/01/2014 10:05 06/01/2014 AM EDT 10:05 AM EDT Narrative VICTOR HUGO JOEIUM - 06/01/2014 10:05 AM EDT Specimen requisition ordered. ??Separate Pathology report to follow Fermin Givens MD PATHOLOGY/CYTOLOGY ORDERABLE S Performing Organization Address City/[facility]/[place] [address] CERTHERESE BARRENNIUM Specimen to Pathology (surgical or derm) (06/01/2014 10:05 AM EDT) Specimen Anatomical Collection Method Collection Time Receive d Time (Source) Location / / Volume Laterality AP Specimen 06/01/2014 10:05 06/01/2014 AM EDT 10:05 AM EDT Narrative CERNER MILLENNIUM - 06/01/2014 10:05 AM EDT Specimen requisition ordered. ??Separate Pathology report to follow Fermin Givens MD PATHOLOGY/CYTOLOGY ORDERABLE S Performing Organization Address City/[facility] [place] [address] CERNER MILLENNIUM COLONOSCOPY (06/01/2014 8:19 AM EDT) [facility] gist Method Time Signature COLONOSCOPY [facility] Endoscopy Patient Name: Jolie Matos ? Procedure Date: 06/01/2014 8:19 AM ? N: [id number] ? Date of : 1955 ? Age: 59 ? Order #: [id number] ? Procedure: ? Colonoscopy Indications: ? Surveillance: Personal history of ? adenomatous polyps on last ? colonoscopy 5 years ago, . Rah mejia ? history (mother) with CRC Providers: ? Fermin Givens MD, Tomasa Subramanian ed, ? RN, Maia Gonzales, Wholesale Account Manager Referring : ?Vasquez Alvarez, DO Medicines: ? Midazolam 3.5 mg IV, Fentanyl 150 ? micrograms IV Complications: ? No immediate complications. Procedure: ? Pre-Anesthesia Assessment: ? - Prior to the procedure, a H istory ? and Physical was performed, a nd ? patient medications and aller gies ? were reviewed. The patient is ? competent. The risks and bene fits of ? the procedure and the sedatio n ? options and risks were discus sed with ? the patient. All questions we re ? answered and informed consent was ? obtained. Patient identificat ion and ? proposed procedure were verif ied by ? the physician and the nurse i n the ? pre-procedure area in the pro cedure ? room. Mental Status Examinati on: ? alert and oriented. Airway ? Examination: normal oropharyn geal ? airway and neck mobility. Res piratory ? Examination: clear to auscult ation. ? CV Examination: normal. ASA G rade ? Assessment: I - A normal, hea lthy ? patient. After reviewing the risks ? and benefits, the patient was deemed ? in satisfactory condition to undergo ? the procedure. The anesthesia plan ? was to use moderate sedation / ? analgesia (conscious sedation ). ? Immediately prior to administ ration ? of medications, the patient w as ? re-assessed for adequacy to r eceive ? sedatives. The heart rate, ? respiratory rate, oxygen satu rations, ? blood pressure, adequacy of p ulmonary ? ventilation, and response to care ? were monitored throughout the ? procedure. The physical statu s of the ? patient was re-assessed after the ? procedure. ? The procedure, indications, b enefits, ? risks and alternatives were e xplained ? to the patient. Specifically ? discussed were potential ? complications including, but not ? limited to, bleeding, perfora tion, ? infection, missing a cancer, and ? adverse medication reactions. The ? patient was placed in the lef t ? lateral decubitus position, a nd a ? digital rectal exam was perfo rmed. ? The Colonoscope was inserted in the ? anus and under direct visuali zation, ? advanced to the terminal ileu m, with ? identification of the appendi ceal ? orifice and IC valve. Careful ? inspection was made as the ? colonoscope was withdrawn. Th e ? colonoscopy was performed ray rodriguez ? difficulty. The patient ilene ated the ? procedure well. The quality o f the ? bowel preparation was excelle nt. ? Findings: ? The perianal exam was abnormal. Findings include ? non-thrombosed external hemorrhoids. ? A few small-mouthed diverticula were found from ? sigmoid to splenic flexure. ? A sessile polyp was found in the sigmoid colon. The ? polyp was 2 mm in size. The polyp was removed with a ? cold biopsy forceps. Resection and retrieval were ? complete. ? A hyperplastic polyp was found in the rectum. The ? polyp was 2 mm in size. The polyp was removed with a ? cold biopsy forceps. Resection and retrieval were ? complete. ? The exam was otherwise without abnormality on direct ? and retroflexion views. ? Impression: ?- Non-thrombosed external hemorrho ids ? found on perianal exam. ? - Diverticulosis from sigmoid to ? splenic flexure. ? - One 2 mm polyp in the sigmo id ? colon. Resected and retrieved . ? - One 2 mm polyp in the rectu m. ? Resected and retrieved. ? - The examination was otherwi se ? normal on direct and retrofle xion ? views. Recommendation: ?- Await pathology results. ? - Repeat colonoscopy in 5 yea rs for ? surveillance. ? Fermin Givens MD 06/01/2014 10:17 AM Number of Addenda: 0 Note Initiated On: 06/01/2014 8:19 AM Specimen (Source) Anatomical Collection Method Collection Time Re ceived Time Location / / Volume Laterality 06/01/2014 8:19 AM EDT Vasquez Alvarez DO GENERAL SURGICAL ORDERABLES Performing Organization Address City/State/ZIP Code Phon e Number PROVATION documented in this encounter Visit Diagnoses Not on filedocumented in this encounter Administered Medications Inactive Administered Medications - up to 3 most recent administrations Medication Order MAR Action Action Date Dose Rate Site lactated ringers infusion New Bag 06/01/2014 7:45 AM EDT 50 mL/hr 50 mL/hr 50 mL/hr, Intravenous, CONTINUOUS, Starting on Wed06/01/14 at 0745, Until Wed06/01/14 at 1104, Endoscopy (Day of Procedure) documented in this encounter Active and Recently Administered Medications Times are shown in EDT. Continuous Medication Order 05/30/2014 05/31/2014 06/01/2014 lactated ringers infusion (CANCELED) 0745 (New Bag - Provider: Nasrin Saxena, COY) 50 mL/hr, at 50 mL/hr, Intravenous, CONT INUOUS, Starting Wed06/01/14 at 0745, Until Wed06/01/14 at 1104, Endo (Day of Procedure) PRN Medication Order 05/30/2014 05/31/2014 06/01/2014 fentaNYL 50mcg/mL injection (CANCELED) 0907 (Given - Provider: Tomasa Crisostomo RN)0910 (Given - Provider: Tomasa Crisostomo RN)0913 (Given - Provider: Tomasa Crisostomo RN)0938 (Given - Provider: Tomasa Crisostomo RN) ONCE PRN, Starting Wed06/01/14 at 0907, U ntil Wed06/01/14 at 1104, Pain, Intra- Operative (Intra-Procedure), Routine midazolam (PF) (VERSED) 1 mg/mL injection (CANCELED) 0907 (Given - Provider: Tomasa Crisostomo RN)0910 (Given - Provider: Tomasa Crisostomo RN)0913 (Given - Provider: Tomasa Crisostomo RN)0938 (Given - Provider: Tomasa Crisostomo RN) ONCE PRN, Starting Wed06/01/14 at 0907, U ntil Wed06/01/14 at 1104, Sleep, Intra- Operative (Intra-Procedure), Routine documented in this encounter Care Teams Strip Picker Relationship Specialty Start Date End Date Vasquez Alvarez DO PCP - General 09/23/[address] [place] [address] documented as of this encounter
--- OUTSIDE RECORDS SUMMARY | 2022-08-21 00:48 | XMS_ITS | Encounter Summary ---
:1955 Author Organization [facility] [place] [address] Care Team Providers Name Role Phone Antonio Vasquez BURNS Primary Care Provider Encounter Details Date Type Department Care Team Description 06/01/2014 Surgery Gastroenterology at [facility] Fermin Givens COLONOSCOPY, [facility] Chris [place] [address] [facility] [phone] GASTROENTEROLOGY [place], [place] [address] (Wo rk) Social History Tobacco Use Types Packs/Day Years Used Date Never Smoker Alcohol Use Standard Drinks/Week Comments Yes 0 (1 standard drink = 0.6 oz pure alcoho l) Sex Assigned at Date Recorded Not on file documented as of this encounter Last Filed Vital Signs Vital Sign Reading Time Taken Comments Blood Pressure 93/52 06/01/2014 9:55 AM EDT Pulse 50 06/01/2014 9:55 AM EDT Temperature 36.4 ??C (97.5 ??F) 06/01/2014 7:28 AM EDT Respiratory Rate 15 06/01/2014 9:55 AM EDT Oxygen Saturation 98% 06/01/2014 9:55 AM EDT Inhaled Oxygen Concentration - - Weight 64.4 kg (142 lb) 06/01/2014 7:28 AM EDT Height - - Body Mass Index - - documented in this encounter Discharge Instructions Discharge InstructionsBushra Perez RN - 06/01/2014 10:06 AM EDT Please call [phone], before 5pm with problems, questions or concerns, after 5pm call the Hospital at [phone] and ask to speak to the Front Facer quality control systems manager and the robotic welding operator will contact that person for you. [...] sent through Care Everywhere. COLONOSCOPY : POSTOP (TAJIK)documented in this encounter Medications at Time of [...] (CALCIUM 600 + D,3,) 600-125 mg-unit Tab Page-3 Fatty Acids 0 11/30/2006 (FISH OIL) 500 [...] Givens MD - 06/01/2014 11:00 AM EDT [facility] Operative Note Patient Name: Jolie Matos : [id number] MR#: [id number] Case Date: 06/01/2014 Surgeon: Surgeon(s) and Role: [...] Surgical Pathology Report (06/01/2014 10:05 AM EDT) [facility] Method Time Signature Surgical CERNER Pathology ? [facility] Report ? Provider: ?? FERMIN GIVENS ??Pt. Name: ?? JOLIE MATOS ? Acc #: ?[id number] ?Pt. MRN: ?[id number] ? Col Date: ?? 06/01/2014 ?/Sex: ?1955,(59 [...] Organization Address City/State/[place] [address] VICTOR HUGO NOVAK Specimen [...] City/[facility]/[place] [address] VICTOR HUGO JOEIUM Specimen to Pathology (surgical or derm) (06/01/2014 10:05 AM EDT) Specimen Anatomical Collection Method Collection Time Receive d Time (Source) Location / / Volume Laterality AP Specimen 06/01/2014 10:05 06/01/2014 AM EDT 10:05 AM EDT Narrative VAUGHNNER MOMOENNIUM - 06/01/2014 10:05 AM EDT Specimen requisition ordered. ??Separate Pathology report to follow Fermin Givens MD PATHOLOGY/CYTOLOGY ORDERABLE S Performing Organization Address City/[facility]/[place] [address] CERTHERESE MILLENNIUM COLONOSCOPY (06/01/2014 8:19 AM EDT) [facility] gist Method Time Signature COLONOSCOPY [facility] [employer] Endoscopy Patient Name: Jolie Matos ? Procedure Date: 06/01/2014 8:19 AM ? N: [id number] ? Date of : 1955 ? Age: 59 ? Order #: [id number] ? Procedure: ? Colonoscopy Indications: ? Surveillance: Personal history of ? adenomatous polyps on last ? colonoscopy 5 years ago, . Rah mejia ? history (mother) with CRC Providers: ? Fermin Givens MD, Tomasa Subramanian ed, ? RN, Maia Gonzales, Heading Repairer Referring : ?Vasquez Alvarez, DO Medicines: ? [...] MAR Action Action Date Dose Rate Site fentaNYL 50mcg/mL injection Given 06/01/2014 9:38 AM EDT 25 mcg ONCE PRN, Starting on Wed06/01/14 at 0907, Until Wed06/01/14 at 1104, Pain, Intra-Operative (Intra-Procedure), Routine Given 06/01/2014 9:13 AM EDT 25 mcg Given 06/01/2014 9:10 AM EDT 50 mcg lactated ringers infusion New Bag 06/01/2014 7:45 AM EDT 50 mL/hr 50 mL/hr 50 mL/hr, Intravenous, CONTINUOUS, Starting on Wed06/01/14 at 0745, Until Wed06/01/14 at 1104, Endoscopy (Day of Procedure) midazolam (PF) (VERSED) 1 mg/mL injectio n Given 06/01/2014 9:38 AM EDT 0.5 mg ONCE PRN, Starting on Wed06/01/14 at 0907, Until Wed06/01/14 at 1104, Sleep, Intra-Operative (Intra-Procedure), Routine Given 06/01/2014 9:13 AM EDT 1 mg Given 06/01/2014 9:10 AM EDT 1 mg documented in this encounter Active and Recently Administered Medications Times are shown in EDT. Continuous Medication Order 05/30/2014 05/31/2014 06/01/2014 lactated ringers infusion (CANCELED) 0745 (New Bag - Provider: Nasrin Saxena RN) 50 mL/hr, at 50 mL/hr, Intravenous, CONT INUOUS, Starting Wed06/01/14 at 0745, Until Wed06/01/14 at 1104, Endo (Day of Procedure) PRN Medication Order 05/30/2014 05/31/2014 06/01/2014 fentaNYL 50mcg/mL injection (CANCELED) 0907 (Given - Provider: Tomasa Crisostomo RN)0910 (Given - Provider: Tomasa Crisostomo RN)0913 (Given - Provider: Tomasa Crisostomo RN)0938 (Given - Provider: Tomasa Crisostomo, RN) ONCE PRN, Starting Wed06/01/14 at 0907, [...] Routine documented in this encounter Care Teams Sales Account Coordinator Relationship Specialty Start Date End Date Vasquez Alvarez DO PCP - General 09/23/[address] [place] [address] documented as of this encounter
--- OUTSIDE RECORDS SUMMARY | 2022-08-21 00:48 | XMS_ITS | Encounter Summary ---
:1955 Author Organization [place] [address] Care Team Providers Name Role Phone Vasquez Alvarez DO Primary Care Provider Reason for Visit Reason Comments Skin Check Encounter Details Date Type Department Care Team Description 06/29/2011 Office Visit Dermatology Patrick Peralta, Terry (Primary Dx); [address] [facility] Seborrheic dermatitis [address] [place], [place] DERMATOLOGY [address] [place] [address] [phone] (Wo rk) Social History Tobacco Use Types Packs/Day Years Used Date Never Smoker Sex Assigned at Date Recorded Not on file documented as of this encounter Progress Notes Patrick Peralta MD - 06/29/2011 11:22 AM EDT Problems: 1. Skin checkup, q. two years. 2. Rosacea of p.r.n. Metronidazole. 3. History of malignant melanoma in sister who is alive and well. 4. Mild seborrhea. Saad follows up and is doing well. She would like to have refills of the MetroGel but would prefer the smaller size tube as she must often take it with her on flights. She would like to have her moles checked. It has been two years since I saw her last. She has a little patch of some redness on the left lower eyelid which has not gone away with uzac-uvh-qxopyhh Lotrimin applications. She has a daughter who is a fourth year medical student at [employer] and is thinking of OB-BALLISTICS TESTER, and she has expressed concern about the application of Lotrimin so close to the eye. Physical examination today reveals no active Rosacea. The patient has blue eyes, blond and is very fair skinned. She has a benign examination of the head, neck, chest, back, hands, arms, forearms, thighs and calves. She has a 1.5cm pigmented patch on the right lateral thigh which is a congential nevus. She continues to have a 7mm erythematous compound versus intradermal nevus on the left upper lateral arm. She has a couple of erythematous patches on the left lower eyelid which are fairly minimal. She does have some mild diffuse scaling in the external auditory canals, on the post-auricular scalp, and in the occipital and lower temporal scalp areas. Assessment & Plan: Rosacea. a. Continue MetroGel 0.75% apply to face p.r.n. after washing, 30gm dispensed with p.r.n. refills. The patient prefers the small tube size. Family history of malignant melanoma in sister. a. Patient reassured about her benign examination today. b. Continue sun avoidance precautions c. RTC in two years for repeat check. Seborrheic of scalp and now left lower eyelid. a. Recommended 1% Hydrocortisone Cream for left lower eyelid apply BID/p.r.n. b. Recommended anti seborrheic shampoo for scalp which patient has not been using recently. c. Expect that these qwvz-gzx-ghljxax products should work well for her fairly mild involvement. Cc: Vasquez Alvarez DO RTC REMINDER: Two Years documented in this encounter Plan of Treatment Not on filedocumented as of this encounter Visit Diagnoses Diagnosis Rosacea - Primary Seborrheic dermatitis Seborrheic dermatitis, unspecified documented in this encounter Care Teams Bell Captain Relationship Specialty Start Date End Date Vasquez Alvarez DO PCP - General 09/23/[address] [place] [address] documented as of this encounter
--- OUTSIDE RECORDS SUMMARY | 2022-08-21 00:48 | XMS_ITS | Encounter Summary ---
:1955 Author Organization [facility] [address] Care Team Providers Name Role Phone Antonio Vasquez BURNS Primary Care Provider Reason for Visit Reason Comments Procedure Encounter Details Date Type Department Care Team Description 11/04/[facility] n[facility] for cosmetic procedure; Margarette Stewart [address] [place] [address] [facility] [place], [place] [address] Social History Tobacco Use Types Packs/Day Years Used Date Never Smoker Alcohol Use Standard Drinks/Week Comments Yes 0 (1 standard drink = 0.6 oz pure alcoho l) Sex Assigned at Date Recorded Not on file documented as of this encounter Patient Instructions Patient InstructionsWali Gerardo LPN - 11/04/2018 3:00 PM EST BOTOX BEFORE AND AFTER INSTRUCTIONS BEFORE: o Ten days before your procedure: Avoid medications that increase the chances of bruising. NSAID pain relievers like Aspirin, Advil, Alleve, Motrin and Ibuprofen can thin the blood, so switch to Tylenol (acetaminophen) before your appointment. Stop supplements that can make bruising worse. These include gingko biloba, ginseng, omega-3, [place]???s Wort and vitamin E. o 24 hours [...] any way then please call Dr. Stephen??? typing secretary at [phone] Stephen a message through [facility] *Note: Your body is very mildly and [...] their until the ??? glow?? kicks in! YOUR SKIN CARE INSTRUCTIONS Overview: This cleansing routine can dramatically improve your overall skin health. Dry or aging skin can be ???lazy?? . ???Lazy?? skin doesn???t exfoliate efficiently on its own (leading to dullness and even breakouts at times), nor does it maintain healthy, productive activities necessary to maintain firmness and resist wrinkling. This cleansing system alone is an important first step toward waking up your skin. An additional benefit of this system is its ability to ???Get Skin Ready?? (GSR) forother helpful ingredients that can be used. Once you tolerate your GSR system, you may benefit from a more comprehensive system that incorporates active ingredients like Vitamin C and retinol. Until then, apply sunscreens (daily) and moisturizers as needed. Notify Dr. Stephen if you experience excessiveirritation and need solutions. AM 1. Gentle Cleanser: Wash face with lukewarm water. 2. Exfoliating Nigerian: Apply to moistened face, massage for 60 seconds and rinse. Start 1-2 times per week and increase to 5-7 days per week. See information below. 3. Complexion Renewal Pads: Pat face dry with towel then wipe entire face with pad. Stinging is normal. 4. Your daytime moisturizer//sunscreen PM 1. Gentle Cleanser 2. Complexion Renewal Pad 3. Your night time moisturizer (for now). This is where we'll add a retin A type product Neck and Chest Use Your products can be used on your neck and chest but it is very common to see the neck react much more severely than the face. Be careful to introduce each new product slowly. General Precautions *Stop Exfoliating Nigerian 5 days before any skin procedure (waxing, laser, chemical peel or facials): Sun Precautions Exfoliating Nigerian can increase your risk of sunburn and possibly make you susceptible to discoloration if you use it without also taking sun precautions. Your regimen should include a sunscreen. Ideally, one with zinc and titanium as main ingredients. You should also seek shade when possible. Sun exposure interferes with every healthy skin goal. Do not stop your regimen in the summertime. Your skin is healthier on this program. Just be sure not to get unprotected and/or heavy sun exposure. Avoid any direct sunlight on your face (protected or not) whenever you are experiencing redness, peeling or sensitivity as you adjust to your skin care regimen. Extra Information Exfoliating Nigerian: Benefits: 1) Increases circulation and skin turnover 2) Enhances penetration of other products you use 3) Helps to remove , dry skin generated from the use of a retinoid (when you start your retinoid you???ll likely experience this.) The general instructions are to apply it to a moistened face. When you really need to remove skin, and/or as you get used to this product, you may want to try using it with a less moistened-almostdry face. That heightens the microdermabrasion effect. Safe to go near the eyes (to the ???bony rim?? ). Precautions: Don???t overuse while acclimating to your retinoids (Brightenex, Retamax, Growth Factor, Tretinoin or Daily Power Defense). It is very helpful when you need to lift off skin generated by the retinoid but if overdone when the skin is red and sensitive then you may aggravate the irritation. documented in this encounter Progress Notes Nuvia Stephen MD - 11/04/2018 3:00 PM EST DERMATOLOGY COSMETIC CONSULT Date of service: 11/04/2018 Jolie Matos : 1955 Provider: Nuvia Stephen MD Chief Complaint Patient presents with ??? Procedure HPI Jolie Matos is a 63 y.o. year old female. New Patient, here today for general cosmetic consultation. She would like to discuss the best course for general skin health. ROS General: feeling well Skin: denies other skin complaints PMH: Any chronic medical conditions:none SKIN HX: Rosacea Seborrheic dermatitis HSV Hx and Details Yes - in the past. SH: Tobacco: never ETOH: little ADR: No Known Allergies MEDS: Current Outpatient Medications Medication Sig Dispense Refill ??? metroNIDAZOLE (METROGEL) 0.75 % gel Apply 1 applicator topically See Admin Instructions. 45 g prn ??? Cholecalciferol, Vitamin D3, (VITAMIN D) 1,000 unit Tab ??? quiNINE 324 mg capsule 324MG = 1 Capsule(s), PO, QHS PRN ??? selenium sulfide (SELSUN) 2.5 % shampoo 1 Appl(s), Top, PRN ??? minocycline (MINOCIN;DYNACIN) 100 mg capsule Take [...] Take 1 tablet by mouth daily. ??? [place]-3 Fatty Acids (FISH OIL) 500 mg Cap (Patient not taking: No sig reported) No current facility-administered medications for this visit. Examination General: Appears well, no distress Assessment and Plan: # Chemoprevention/correction: Emphasized value of retinoid-based skin care system to amplify and maintain benefits of any anti aging plan/procedures. -special considerations: -retinoid: Not yet date started: -ZO skincare regimen: regimen or products: GSR reviewed by: NATE date: 11/04/18 -instructions in AVS dated 11/04/18 -discussed importance of meticulous sun protection # Botox: - Done 11/04/2018?: N. If yes, see Treatment Map - 50 units - Pt's primary area of concern: forehead - Special considerations for this pt: none - quote for Botox: $500.00 per treatment - Botox Before and After instructions given # History of Cold Sores: cutaneous and vermilion lip examined and free of any scar or active lesions - Pt reports no cold sores per year in several years - HSV prophylaxis discussed for procedures where needles or lasers are used around the mouth/lip area - patient instructed on use of valtrex before and after injectable or laser treatment involving the mouth/lip area RX: needs rx if ever receiving injectables around mouth Pt paid:$150.00 cosmetic fee paid upon exiting clinic today. Instructions: Handout: FOLLOW UP WHEN: PRN FOR WHAT: Botox LENGTH OF VISIT: 15 NUMBING?: no PICTURES NEEDED? YES COST: $500.00 NOTES: Will discuss fillers for cheeks, congregational and perioral area after botox. I am documenting this encounter acting as the scribe for and in the presence of Dr.Lucas WALI GERARDO LPN I performed the above scribed service and agree with the accuracy of the documentation in this encounter. Nuvia Stephen MD Section of Dermatology [facility] documented in this encounter Plan of Treatment Not on filedocumented as of this encounter Visit Diagnoses Diagnosis Encounter for cosmetic procedure Rosacea documented in this encounter Care Teams Medicare Specialist Relationship Specialty Start Date End Date Vasquez Alvarez DO PCP - General 09/23/[address] [place] [address] documented as of this encounter
--- OUTSIDE RECORDS SUMMARY | 2022-08-21 00:49 | XMS_ITS | Encounter Summary ---
:1955 Author Organization [facility] Address [address] [place] [address] Care Team Providers Name Role Phone Unknown, Provider Primary Care Provider Encounter Details Date Type Department Care Team Description 12/14/2000 Results Only [facility] - Anita Gordon od, NUCLEAR PLANT INSTRUMENT TECHNICIAN conversion [address] [place] [phone] (Wo rk) Social History Tobacco Use Types Packs/Day Years Used Date Never Assessed Sex Assigned at Date Recorded Not on file documented as of this encounter Plan of Treatment Not on filedocumented as of this encounter Procedures Procedure Name Priority Date/Time Associated Diagnosis Comme nts CYTOPATHOLOGY Routine 12/14/2000 0:00 EST Results for this procedure are i n the results section . documented in this encounter Results CYTOPATHOLOGY (12/14/2000 0:00 EST) Pathology Report: CYTOPATHOLOGY REPORT [facility] Reports generated via electronic interface contain owen ginal data; however they are lacking the format of the original re port. Caution should be taken when reading/interpreting unfo rmatted reports. Name: ? ALESSANDRO MATOS ? Accession #: ? [id number] : ? 1955 (Age: 45) ??F ?Collect Date: ? 12/02 Location: ? [facility] ? Receive Date : ? 12/15/2000 Provider: ?ANITA QUEEN NUCLEAR PLANT INSTRUMENT TECHNICIAN Copy to: ? Specimen/Source: ?ThinPrep Pap Test, Cervix/ Endocervix Last Menstrual Period: ? 12/02/00 ? SPECIMEN ADEQUACY ? Satisfactory for eval uation but limited by an absence of a transformation zone component. GENERAL CATEGORIZATION ? Within Normal Limits ? Document reviewed and electronically signed by: ? Desi Conner, [facility](ASCP) ? Report Date: ??12/15/2000 14:52 End of Report Specimen Performing Organization Address City/State/ZIP Code Phon e Number [facility] [address] [place] [address] [facility] [address] [place] [address] documented in this encounter Visit Diagnoses Not on filedocumented in this encounter Care Teams Leaflet Distributor Relationship Specialty Start Date End Date Unknown, Provider, PCP - General 11/26/09 12/20/17 documented as of this encounter
--- OUTSIDE RECORDS SUMMARY | 2022-08-21 00:49 | XMS_ITS | Encounter Summary ---
:1955 Author Organization [facility] Address [address] [place] [address] Care Team Providers Name Role Phone Unknown, Provider Primary Care Provider Encounter Details Date Type Department Care Team Description 08/25/2002 Results Only [facility] - Anita Gordon od, VEGETABLE PICKER conversion [address] [place] [phone] (Wo rk) Social History Tobacco Use Types Packs/Day Years Used Date Never Assessed Sex Assigned at Date Recorded Not on file documented as of this encounter Plan of Treatment Not on filedocumented as of this encounter Procedures Procedure Name Priority Date/Time Associated Diagnosis Comme nts CYTOPATHOLOGY Routine 08/25/2002 0:00 EDT Results for this procedure are i n the results section . documented in this encounter Results CYTOPATHOLOGY (08/25/2002 0:00 EDT) Pathology Report: CYTOPATHOLOGY REPORT [facility] Reports generated via electronic interface contain owen ginal data; however they are lacking the format of the original re port. Caution should be taken when reading/interpreting unfo rmatted reports. Name: ? ALESSANDRO MATOS ? Accession #: ? [id number] : ? 1955 (Age: 47) ??F ?Collect Date: ? 08/02 Location: ? [facility] ? Receive Date : ? 08/28/2002 Provider: ?ANITA QUEEN [facility] Copy to: ? Specimen/Source: ?ThinPrep Pap Test, Cervix/ Endocervix Last Menstrual Period: ? 08/22/02 ? SPECIMEN ADEQUACY ? Satisfactory for Evaluation - transformation zone component present GENERAL CATEGORIZATION ? Other, see interpretation INTERPRETATION ? Endometrial cells present in a woman equal to o r greater than age 40. Negative for Intraepithelial Lesion or Malignancy. ? COMMENT ? Benign appearing endometrial cells on Pap tests are usually a normal finding in women with regular menstrual cycles, especially if the Pap was collected during the first half of the menstr ual cycle. ??There is data showing that endometrial cells on Pap tests may be associated wit h endometrial/uterine abnormalities in post menopausal women or in premenopausal women with abnormal bleeding. ??There is limited data on the significance of benign endometr ial cells in post menopausal women on HRT. ??Clinical correlation is rec ommended. Note: ?? The Pap test is not an accurate test for the screening of endometrial lesions and should not be used as a follow up in patie nts with clinical suspicion of endometrial pathology. ? Document reviewed and electronically signed by: ? MINA Owens(ASCP) ? Report Date: ??08/31/2002 08:01 End of Report Specimen Performing Organization Address City/State/ZIP Code Phon e Number [facility] [address] [place] [phone] SERVICES [facility] [address] [place] [address] documented in this encounter Visit Diagnoses Not on filedocumented in this encounter Care Teams Server Relationship Specialty Start Date End Date Unknown, Provider, PCP - General 11/26/09 12/20/17 documented as of this encounter
--- OUTSIDE RECORDS SUMMARY | 2022-08-21 00:49 | XMS_ITS | Encounter Summary ---
:1955 Author Organization [facility] Address [address] [place] [address] Care Team Providers Name Role Phone Unavailable Primary Care Provider Unavailable Encounter Details Date Type Department Care Team Description 01/28/2009 Before PRISM [facility] - Anita Palmer, Converted Visit Maple conversion KRAFT MILL OPERATOR (Maple) [id number] [place] [phone] (Wo rk) Social History Tobacco Use Types Packs/Day Years Used Date Never Assessed Sex Assigned at Date Recorded Not on file documented as of this encounter Plan of Treatment Not on filedocumented as of this encounter Procedures Procedure Name Priority Date/Time Associated Comments Diagnosis HPV DETECTION, HIGH Routine 01/28/2009 8:04 Resul ts for this RISK TYPES EDT procedure are i n the results section. CYTOPATHOLOGY Routine 01/28/2009 0:00 Results for this EDT procedure are i n the results section. documented in this encounter Results HUMAN PAPILLOMA VIRUS DNA TEST (01/28/2009 8:04 EDT) Specimen Description Cervix, ThinPrep [facility] vial Result Negative for HPV [facility] types 16, 18, 31, 33, 35, 39, 45, 51, 52, 56, 58, 59, and 68. Report Status Final [facility] 02/06/2009 Specimen Performing Organization Address City/State/ZIP Code Phon e Number [facility] [address] [place] [address] SERVICES [facility] [address] [place] [address] CYTOPATHOLOGY (01/28/2009 0:00 EDT) Pathology Report: CYTOPATHOLOGY REPORT ? [facility] ? [facility] Reports generated via electr Prepared Response interface contain original data; ? however they are lacking the format of the original report. ? Caution should be taken when reading/interpreting unformatted reports. ? Name: ? KOBEALESSANDRO BOLAÑOS ? Accession #: ? [id number] ? : ? 1955 (Age: 53) ??F ?Collect Date: ? 01/28/2009 ? Location: ? [facility] ? Receive Date: ? 01/29/2009 ? Provider: ?ANITA SNEHAAlice OOD KRAFT MILL OPERATOR ? Copy to: ? Specimen/Source: ? Pap Test, Cervix/Endocervix, ThinPrep Imaging System ? with manual evaluation ? Last Menstrual Period: ? 02/09 ? Other: ? HPVDX - HPV testing requeste d regardless of diagnosis on current ThinPrep Pap ?? test. ? SPECIMEN ADEQUACY ? Satisfactory for Eval uation ? - transformation zone compon ent present ? GENERAL CATEGORIZATION ? Negative for Intraepi thelial Lesion or Malignancy ? Document reviewed and electr onically signed by: ? Georgette Rao, [place](ASCP ) ? Report Date: ??04/01/ 2009 09:17 ? End of Report ? Specimen Performing Organization Address City/State/ZIP Code Phon e Number [facility] [address] [place] [address] SERVICES [facility] [address] [place] [address] documented in this encounter Visit Diagnoses Not on filedocumented in this encounter
--- OUTSIDE RECORDS SUMMARY | 2022-08-21 00:49 | XMS_ITS | Encounter Summary ---
:1955 Author Organization [facility] Address [address] [place] [address] Care Team Providers Name Role Phone Unavailable Primary Care Provider Unavailable Encounter Details Date Type Department Care Team Description 11/22/2009 Orders Only [facility] Barbara Richardson MD Laboratory Services - [address] [place] [address] [address] [place] [address] [phone] Social History Tobacco Use Types Packs/Day Years Used Date Never Assessed Sex Assigned at Date Recorded Not on file documented as of this encounter Plan of Treatment Not on filedocumented as of this encounter Procedures Procedure Name Priority Date/Time Associated Diagnosis Comme [facility] SURGICAL PATHOLOGY Routine 11/22/2009 0:00 EST Re sults for this procedure are i n the results section. documented in this encounter Results SURGICAL PATHOLOGY (11/22/2009 0:00 EST) Pathology Report: SURGICAL PATHOLOGY REPORT ? [facility] Reports generated via electr Zairge interface contain original data; ? LAB however they are lacking the format of the original report. ? Caution should be taken when reading/interpreting unformatted reports. ? Name: ? SHAWNA, ALESSANDRO K ? Accession #: ? [id number] ? : ? 1955 (Age: 54) ??F ? Collec t Date: ? 11/22/2009 ? Location: ? [facility] ? R eceive Date: ? 11/23/2009 ? Provider: BARBARA D RISA MD ? Copy to: SHERRILL BRET MANNEQUIN MAKER ? BRY F JOSE DO ? Final Pathologic Diagnosis: ? Endometrium, biopsy: ? 1. ?Endometrial polyp, hyperplastic type. ? 2. ? Background of disor dered proliferative endometrium. ? 3. ? No cytologic atypia identified. ??See comment. ? Comment: ? Dr. Royce gar s reviewed this case in consultation. (Dr. Balderas)/mpl ? Document reviewed and electr onically signed by: ? AMOR BALDERAS MD ? Report ??Date: 11/27/2009 09 :33 ? By the signature above, the attending physician certifies that he/she has ? personally conducted a gross and/or microscopic examination of the described ? specimens and rendered or co nfirmed the above diagnosis. ? Specimen(s) Received: ? Endometrial bx ? Clinical History: ? Abnormal vaginal blee ding, LMP: 12/2008 +/- ? Gross Description: ? Received in formalin labelled Shawna, Alessandro and endometrial bx are 2.5 x 1.5 x 0.3 cm of garibay-pink t o red, hemorrhagic, slightly mucoid tissue ? fragments. ??The specimen is entirely submitted in one cassette following ? filtration. ??(M. David)/ cjh ? End of Report ? Specimen Performing Organization Address City/State/ZIP Code Phon e Number [facility] [address] [place] [address] SERVICES [facility] [address] [place] [address] documented in this encounter Visit Diagnoses Not on filedocumented in this encounter
--- OUTSIDE RECORDS SUMMARY | 2022-08-21 00:49 | XMS_ITS | Encounter Summary ---
:1955 Author Organization [facility] Address [address] [place] [address] Care Team Providers Name Role Phone Vasquez Alvarez DO Primary Care Provider Encounter Details Date Type Department Care Team Description 10/28/2018 Results Only [facility]- Anita Friedman, [facility] [phone] [facility] [place] [address] (Wo rk) Social History Tobacco Use Types Packs/Day Years Used Date Never Assessed Sex Assigned at Date Recorded Not on file documented as of this encounter Plan of Treatment Not on filedocumented as of this encounter Procedures Procedure Name Priority Date/Time Associated Diagnosis Comme nts PAP TEST- RESULT Routine 10/28/2018 0:00 EST Resu lts for this ONLY procedure are i n the results section. documented in this encounter Results PAP TEST- RESULT ONLY (10/28/2018 0:00 EST) Pathology Report: CYTOPATHOLOGY REPORT [facility] Reports generated via electronic interface contain owen ginal data; SERVICES however they are lacking the format of the original re port. Caution should be taken when reading/interpreting unfo rmatted reports. Name: ? ALESSANDRO MATOS ? Accession #: ? [id number] : ? 1955 (Age: 63) ??F ?Collect Date: ? 10/02 Location: ? [facility] ? Receive Date : ? 10/31/2018 Provider: ?ANITA QUEEN SEAT TRIMMER Copy to: ?VASQUEZ ALVAREZ DO ? Specimen/Source: ? Pap Test, Cervix, ThinPrep Imaging System with manual evaluation Last Menstrual Period: ? 2009 Other: ? Stenotic os ? SPECIMEN ADEQUACY ? Satisfactory for Evaluation - assessment of transformation zone component not appl icable ( e.g. atrophy, vaginal sample, hysterectomy) GENERAL CATEGORIZATION ? Negative for Intraepithelial Lesion or Malignan cy ? Document reviewed and electronically signed by: ? MINA Boudreaux(ASCP) ? Report Date: ??11/03/2018 13:04 End of Report Specimen Performing Organization Address City/State/ZIP Code Phon e Number [facility] [address] [place] [address] SERVICES documented in this encounter Visit Diagnoses Not on filedocumented in this encounter Care Teams Banking Center Manager Relationship Specialty Start Date End Date Vasquez Alvarez DO PCP - General 12/21/17 [address] [place], [place] [address] documented as of this encounter
--- OUTSIDE RECORDS SUMMARY | 2022-08-21 00:49 | XMS_ITS | Encounter Summary ---
:1955 Author Organization [facility] Address [address] [place] [address] Care Team Providers Name Role Phone Unknown, Provider Primary Care Provider Encounter Details Date Type Department Care Team Description 05/08/2013 Results Only [facility] David Palmer, WINDOWS SERVER ARCHITECT Laboratory Services - [address] [place], [place] [address] [facility] [address] [place] [address] [phone] Social History Tobacco Use Types Packs/Day Years Used Date Never Assessed Sex Assigned at Date Recorded Not on file documented as of this encounter Plan of Treatment Not on filedocumented as of this encounter Procedures Procedure Name Priority Date/Time Associated Diagnosis Comme nts PAP TEST- RESULT Routine 05/08/2013 0:00 EDT Resu lts for this ONLY procedure are i n the results section. documented in this encounter Results PAP TEST- RESULT ONLY (05/08/2013 0:00 EDT) Pathology Report: CYTOPATHOLOGY REPORT [facility] Reports generated via electronic interface contain owen ginal data; however they are lacking the format of the original re port. Caution should be taken when reading/interpreting unfo rmatted reports. Name: ? ALESSANDRO MATOS ? Accession #: ? [id number] ? : ? 1955 (Age: 58) ??F ?Collect Da te: ? 05/08/2013 ? Location: ? [facility] ? Receive Date: ? 013 ? Provider: SHERRILL PALMER WINDOWS SERVER ARCHITECT Copy to: BRY GARCIA DO ? Final Report SPECIMEN ADEQUACY ? Satisfactory for Evaluation - transformation zone component present GENERAL CATEGORIZATION ? Negative for Intraepithelial Lesion or Malignan cy INTERPRETATION ? Reactive cellular sofia nges associated with inflammation present (includes repair). Specimen/Source: ??Pap Test, Cervix/Endocervix, ThinPr ep Imaging System with manual evaluation Document reviewed and electronically signed by: ? CASS ANDERS MD ? Report ??Date: 05/17/2013 09:11 HPV with Pap Test ? Date Ordered: ? 05/16/2013 ? Status: ?? Signed Out ?Date Complete: ? 05/19/2013 ? By: ??S ystem Interface ? Date Reported: ? 05/19/2013 ? Interpretation RESULT: Negative for HPV. No E6 or E7 mRNA is detected from HPV types 16,18,31,3 3,35, 39,45,51,52,56,58,59,66, and 68 by aircraft ordnance systems mechanic media chloe amplification. Comments Document reviewed and electronically signed by: ? System Interface ? Report date: 05/19/2013 By the signature above, the attending physician certif ies that he/she has personally conducted a gross and/or microscopic examin ation of the described specimens and rendered or confirmed the above diagnosi s. End of Report Specimen Performing Organization Address City/State/ZIP Code Phon e Number [facility] [address] [place] [address] SERVICES [facility] [address] [place] [address] documented in this encounter Visit Diagnoses Not on filedocumented in this encounter Care Teams Briquette Molder Relationship Specialty Start Date End Date Unknown, Provider, PCP - General 11/26/09 12/20/17 documented as of this encounter
--- OUTSIDE RECORDS SUMMARY | 2022-08-21 00:49 | XMS_ITS | Clinical Summary ---
:1955 Author Organization [facility] Address [address] [place] [address] Care Team Providers Name Role Phone Vasquez Alvarez DO Primary Care Provider Social History Tobacco Use Types Packs/Day Years Used Date Never Assessed Sex Assigned at Date Recorded Not on file Plan of Treatment Health Maintenance Due Date Last Done Comments Hepatitis C Screen 1955 COVID-19 Vaccine (1) 1965 Fall Risk Screening 2018 Insurance Payer Benefit Plan / Subscriber ID Effective Phone Address T ype Group Dates CIGNA CIGNA [id number] 2014-Prese [phone] [address] [facility] [id number] [place] [address] MEDICARE MEDICARE A/B [id number] 2018-Prese [address] Medicare GL nt [address] [place] [phone] Jolie Matos Personal/Family Self 1955 [address] (Home) [address] [phone] [place] (Work) [place] [address] Jolie Matos Personal/Family Self 1955 [address] ([address]) [address] [phone] [facility] (Work) [place] [address] Jolie Matos Personal/Family Self 1955 [address] (Home) [address] [phone] [place] (Work) [place] [address] Jolie Matos Personal/Family Self 1955 [address] (Home) [address] [phone] [place] (Work) [place] [address] Jolie Matos Personal/Family Self 1955 [address] (Home) [facility] [phone] [facility] (Work) [place] [address] Care Teams Payment Poster Relationship Specialty Start Date End Date Vasquez Alvarez, PCP - General 12/21/17 [address] [place], [place] [phone]
--- OUTSIDE RECORDS SUMMARY | 2022-08-21 00:49 | XMS_ITS | Encounter Summary ---
:1955 Author Organization [facility] Address [address] [place] [address] Care Team Providers Name Role Phone Unknown, Provider Primary Care Provider Encounter Details Date Type Department Care Team Description 03/06/2005 Results Only [facility] - Anita Gordon od, LIGHT TRUCK DRIVER conversion [address] [place] [address] [address] [place] [phone] (Wo rk) Social History Tobacco Use Types Packs/Day Years Used Date Never Assessed Sex Assigned at Date Recorded Not on file documented as of this encounter Plan of Treatment Not on filedocumented as of this encounter Procedures Procedure Name Priority Date/Time Associated Diagnosis Comme nts CYTOPATHOLOGY Routine 03/06/2005 0:00 EDT Results for this procedure are i n the results section . documented in this encounter Results CYTOPATHOLOGY (03/06/2005 0:00 EDT) Pathology Report: CYTOPATHOLOGY REPORT [facility] Reports generated via electronic interface contain owen ginal data; however they are lacking the format of the original re port. Caution should be taken when reading/interpreting unfo rmatted reports. Name: ? ALESSANDRO MATOS ? Accession #: ? [id number] : ? 1955 (Age: 49) ??F ?Collect Date: ? 0504/2005 Location: ? [facility] ? Receive Date : ? 03/09/2005 Provider: ?ANITA QEUEN LIGHT TRUCK DRIVER Copy to: ? Specimen/Source: ?ThinPrep Pap Test, Cervix/ Endocervix Last Menstrual Period: ? 02/19/05 Other: ? HPVA - HPV testing requested if ASC-US on the current ThinPrep Pap test. ? SPECIMEN ADEQUACY ? Satisfactory for Evaluation - transformation zone component present GENERAL CATEGORIZATION ? Negative for Intraepithelial Lesion or Malignan cy ? Document reviewed and electronically signed by: ? MINA Lundberg(ASCP) ? Report Date: ??03/12/2005 14:31 End of Report Specimen Performing Organization Address City/State/ZIP Code Phon e Number [facility] [address] [place] [address] SERVICES [facility] [address] [place] [address] documented in this encounter Visit Diagnoses Not on filedocumented in this encounter Care Teams Roads Supervisor Relationship Specialty Start Date End Date Unknown, Provider, PCP - General 11/26/09 12/20/17 documented as of this encounter
--- OUTSIDE RECORDS SUMMARY | 2022-08-21 00:49 | XMS_ITS | Encounter Summary ---
:1955 Author Organization [facility] Address [address] [place] [address] Care Team Providers Name Role Phone Unknown, Provider Primary Care Provider Encounter Details Date Type Department Care Team Description 12/20/2017 Hospital Encounter [facility]- Tia Unknown, Provider, [facility] [address] [facility] [phone] [place] [address] (Work) [phone] Social History Tobacco Use Types Packs/Day Years Used Date Never Assessed Sex Assigned at Date Recorded Not on file documented as of this encounter Discharge Disposition Disposition Code Departure Means Destination Home or Self Jail documented in this encounter Plan of Treatment Not on filedocumented as of this encounter Visit Diagnoses Not on filedocumented in this encounter Care Teams Flap Curer Relationship Specialty Start Date End Date Unknown, Provider, PCP - General 11/26/09 12/20/17 documented as of this encounter
--- OUTSIDE RECORDS SUMMARY | 2022-08-21 00:49 | XMS_ITS | Encounter Summary ---
:1955 Author Organization [facility] Address [address] [place] [address] Care Team Providers Name Role Phone Vasquez Alvarez DO Primary Care Provider Encounter Details Date Type Department Care Team Description 10/06/2021 Lab Requisition [facility] Outr Resulting Lab, Pathology & Laboratory Provider [facility] [address] [place], [place] [address] Social History Tobacco Use Types Packs/Day Years Used Date Never Assessed Sex Assigned at Date Recorded Not on file documented as of this encounter Plan of Treatment Not on filedocumented as of this encounter Procedures Procedure Name Priority Date/Time Associated Diagnosis Comme nts LYME AB Routine 10/06/2021 15:05 EST Results for this procedure are i n the results section . documented in this encounter Results LYME AB (10/06/2021 15:05 EST) Pathologist Sig nature Lyme Ab Negative Negative [facility] SERVICES Specimen Blood - Venous blood (substance) Performing Organization Address City/State/ZIP Code Phon e Number [facility] [address] [place] [address] SERVICES documented in this encounter Visit Diagnoses Not on filedocumented in this encounter Care Teams Continuous Mining Machine Lode Miner Relationship Specialty Start Date End Date Vasquez Alvarez DO PCP - General 12/21/17 [address] [place], [place] [phone] documented as of this encounter
--- OUTSIDE RECORDS SUMMARY | 2022-08-21 00:49 | XMS_ITS | Encounter Summary ---
:1955 Author Organization [facility] Address [address] [place] [address] Care Team Providers Name Role Phone Vasquez Alvarez DO Primary Care Provider Encounter Details Date Type Department Care Team Description 08/01/2021 Lab Requisition [facility] Lindsay Simon for other Pathology & M, DO general examination Laboratory Medicine - [address] [facility] [address] [place] [phone] Social History Tobacco Use Types Packs/Day Years Used Date Never Assessed Sex Assigned at Date Recorded Not on file documented as of this encounter Plan of Treatment Not on filedocumented as of this encounter Procedures Procedure Name Priority Date/Time Associated Diagnosis Comme nts SURGICAL PATHOLOGY Today 08/01/2021 8:35 EDT Encounter for o ther Results for this general examination procedur e are in the results section. documented in this encounter Results SURGICAL PATHOLOGY (08/01/2021 8:35 EDT) Note to Patient The following [facility] MEDICAL pathology results CENTER have been interpreted LABORATORY by your pathologist SERVICES and may be available to you before your health provider has had the opportunity to review them. Please allow time for your provider to receive these results and explore management options, if applicable. Final Diagnosis A. COLON, CECUM, POLYP, BIOPSY: [facility] DICAL - Tubular adenoma. CENTER LABORATORY B. RECTUM, POLYP, BIOPSY: SERVICES - Hyperplastic polyp. Attestation By the signature [facility] MEDICAL Electronica lly below, the attending CENTER signed by De La Cruz, physician certifies LABORATORY MD Vicky on that they have 1) SERVICES 08/04/2021 at 1650 personally conducted a gross and/or microscopic examination of the described specimen(s), and/or personally interpreted the results of laboratory testing of the described specimen(s), and 2) personally rendered or confirmed the above diagnosis. Clinical History Hx of colonic polyps [facility] SERVICES Gross Description A. [facility] MEDICAL Received in formalin yonas d with proper patient identification (initials C, A) and cecal polyp is a pale garibay-white tissue (0.4 x 0.3 x 0.2 cm). Submitted intact in . CENTER LABORATORY B. SERVICES Received in formalin yonas d with proper patient identification (initials C, A) and rectal polyp are two pale garibay-white tissues (0.2 x 0.2 x 0.2 cm and 0.2 x 0.1 by less than 0.1 cm). Entirely submitted in B1. Saw Matthews 08/03/2021 19:17 Performing Lab [facility] SERVICES Scanned Images [facility] SERVICES Specimen Tissue - Specimen from rectum (specimen) Tissue specimen (specimen) - Specimen fr om rectum (specimen) Performing Organization Address City/State/ZIP Code Phon e Number [facility] [address] [place] [address] SERVICES documented in this encounter Visit Diagnoses Diagnosis Encounter for other general examination documented in this encounter Care Teams Thermal Engineer Relationship Specialty Start Date End Date Vasquez Alvarez DO PCP - General 12/21/17 [address] [place], [place] [phone] documented as of this encounter
--- OUTSIDE RECORDS SUMMARY | 2022-08-21 00:49 | XMS_ITS | Encounter Summary ---
:1955 Author Organization [facility] Address [address] [place] [address] Care Team Providers Name Role Phone Unknown, Provider Primary Care Provider Encounter Details Date Type Department Care Team Description 12/02/2007 Results Only [facility] - Jemima Ontiveros MD Maple conversion [address] [place] [address] [place] [address] Social History Tobacco Use Types Packs/Day Years Used Date Never Assessed Sex Assigned at Date Recorded Not on file documented as of this encounter Plan of Treatment Not on filedocumented as of this encounter Procedures Procedure Name Priority Date/Time Associated Diagnosis Comme [facility] SURGICAL PATHOLOGY Routine 12/02/2007 0:00 EST Re sults for this procedure are i n the results section. documented in this encounter Results SURGICAL PATHOLOGY (12/02/2007 0:00 EST) Pathology Report: SURGICAL PATHOLOGY REPORT [facility] Reports generated via electronic interface contain owen ginal data; LAB however they are lacking the format of the original re port. Caution should be taken when reading/interpreting unfo rmatted reports. Name: ? ALESSANDRO MATOS ? Accession #: ? [id number] ? : ? 1955 (Age: 52) ??F ? Collect Date: ? 12/02/2007 ? Location: ? [facility] ? Receive Date: ? 008 ? Provider: RAY ONTIVEROS MD Copy to: BRY GARCIA DO ? Final Pathologic Diagnosis: ? Uterus, endometrium, curettage: 1. ?Proliferative endometri um with tubal metaplasia. See comment. 2. ? Fragments of benign endocervix and ectocervix . 3. ? Rare fragment of benign myometrium. ?? Comment: ? This case was shown in intradepartmental consul tation. Document reviewed and electronically signed by: MYRON WRIGHT MD Report ??Date: 12/06/2007 16:07 By the signature above, the attending physician certif ies that he/she has personally conducted a gross and/or microscopic examin ation of the described specimens and rendered or confirmed the above diagnosi s. Specimen(s) Received: ? Endometrial curettings Clinical History: ? Menorrhagia, currently on Provera, LMP: 11/22/07 Gross Description: ? Received in formalin labelled Shawna and endometrial curettings are 2.5 x 1.5 x 0.5 cm of red-brown hemorrhagic soft tissue fragments. ??The specimen is entirely submitted as (A1) and (A2) following fi ltration. ??(Loyd David)/[facility] End of Report Specimen Performing Organization Address City/State/ZIP Code Phon e Number [facility] [address] [place] [address] SERVICES [facility] [address] [place] [address] documented in this encounter Visit Diagnoses Not on filedocumented in this encounter Care Teams Dancing Instructor Relationship Specialty Start Date End Date Unknown, Provider, PCP - General 11/26/09 12/20/17 documented as of this encounter
--- OUTSIDE RECORDS SUMMARY | 2022-08-21 00:49 | XMS_ITS | Encounter Summary ---
:1955 Author Organization [facility] Address [address] [place] [address] Care Team Providers Name Role Phone Unknown, Provider Primary Care Provider Encounter Details Date Type Department Care Team Description 03/26/2016 Results Only [facility] Anita Palmer, NATURAL RESOURCE ECONOMIST [phone] [place] [address] [place] [address] (Wo rk) Social History Tobacco Use Types Packs/Day Years Used Date Never Assessed Sex Assigned at Date Recorded Not on file documented as of this encounter Plan of Treatment Not on filedocumented as of this encounter Procedures Procedure Name Priority Date/Time Associated Diagnosis Comme nts PAP TEST- RESULT Routine 03/26/2016 0:00 EDT Resu lts for this ONLY procedure are i n the results section. documented in this encounter Results PAP TEST- RESULT ONLY (03/26/2016 0:00 EDT) Pathology Report: CYTOPATHOLOGY REPORT [facility] Reports generated via electronic interface contain owen ginal data; SERVICES however they are lacking the format of the original re port. Caution should be taken when reading/interpreting unfo rmatted reports. Name: ? ALESSANDRO MATOS ? Accession #: ? [id number] ? : ? 1955 (Age: 60 ) ??F ?Collect Date: ? 03/26/2016 ? Location: ? [facility] ? Receive Date: ? 03/31/20 16 ? Provider: ANITA PALMER NATURAL RESOURCE ECONOMIST Copy to: BRY GARCIA DO ? Final Report SPECIMEN ADEQUACY ? Satisfactory for Evaluation - assessment of transformation zone component not appl icable ( e.g. atrophy, vaginal sample, hysterectomy) - obscuring contamination, possibly lubricant GENERAL CATEGORIZATION ? Negative for Intraepithelial Lesion or Malignan cy ?? Last Menstrual Period: 2009 Specimen/Source: ??Pap Test, Cervix/Endocervix, ThinPr ep Imaging System with manual evaluation Document reviewed and electronically signed by: ? MINA Owens(ASCP) ? Report ??Date: 04/08/2016 10:55 HPV with Pap Test ? Date Ordered: ? 04/08/2016 ? Status: ?? S igned Out ?Date Complete: ? 04/10/2016 ? By: ??Sy stem Interface ? Date Reported: ? 04/10/2016 ? Interpretation RESULT: Negative for HPV. No E6 or E7 mRNA is detected from HPV types 16,18,31,3 3,35, 39,45,51,52,56,58,59,66, and 68 by public safety officer media chloe amplification. Comments Document reviewed and electronically signed by: ? System Interface ? Report date: 04/10/2016 By the signature above, the attending physician certif ies that he/she has personally conducted a gross and/or microscopic examin ation of the described specimens and rendered or confirmed the above diagnosi s. End of Report Specimen Performing Organization Address City/State/ZIP Code Phon e Number [facility] [address] [place] [address] SERVICES documented in this encounter Visit Diagnoses Not on filedocumented in this encounter Care Teams Data Collection Associate Relationship Specialty Start Date End Date Unknown, Provider, PCP - General 11/26/09 documented as of this encounter
--- NOTE | 2022-08-21 06:45 | DI.MAMMO_ITS ---
Exam(s) MAMMO SCREENING EXAM: MAMMO SCREENING CLINICAL HISTORY: screening,z12.39. TECHNIQUE: Bilateral full field digital CC and MLO mammographic images were obtained with 3D tomosyn thesis and utilizing computer aided detection (CAD). COMPARISON: Prior mammograms were reviewed, the most recent being November 2020.. FINDINGS: There has been no significant change in the appearance and distribution of the fibroglandular tissue. Asymmetric density in the right breast is unchanged from prior mammograms. There are no CAD designations. There are no new spiculated masses nor malignant appearing microcalcification groups. There is no significant architectural distortion nor skin thickening-retraction. IMPRESSION: No radiographic evidence of malignancy. BI-RADS Category 1 - Negative Breast Density - Category B - Scattered areas of fibroglandular density Breast density Category C or D implies that the patient has dense breast tissue. Dense breast tissue can make it harder to find cancer on a mammogram. Dense breast tissue is also associated with an incr eased risk of breast cancer. This information about the result of the mammogram report was provided to the patient to raise their awareness. Use this report when you speak with the patient about their risks for breast cancer, which includes their family history. At that time, you may recommend additional screening tests (Ultrasoun d or MRI) as these tests may add significant information. A negative radiographic report should not delay biopsy if a dominant or clinically suspicious mass is present. Up to ten percent of cancers are not identified on mammography. A negative report may reinforce clinical impression. Adenosis and dense breasts may obscure an underlying neoplasm. False positive reports average 6 to 10%. Patient will receive a letter notifying them of these results.
--- NOTE | 2022-08-21 06:45 | DI.US_ITS ---
Exam(s) US ABDOMEN EXAM: US ABDOMEN CLINICAL HISTORY: vomiting after drinking,r11.10 TECHNIQUE: Ultrasound of complete upper abdomen performed using standard protocol. COMPARISON: US ABDOMEN ULTRASOUND (P) from 08/31/2011 FINDINGS: There is no ascites evident. LIVER: There are no hepatic lesions evident nor obvious dilatation of intrahepatic ducts. GALLBLADDER/BILIARY: Gallbladder surgically absent. The common hepatic duct ismildly dilated, measuring 7-8mm at the level of yousuf hepatis. Probably re lated post cholecystectomy status. PANCREAS: There is no evidence of pancreatic mass nor dilatation of the pancreatic duct. SPLEEN: The spleen is not enlarged and there are no intrasplenic lesions evident. KIDNEYS:Kidneys exhibit normal size with no evidence of solid mass, calculus, nor hydronephrosis. No cortical cysts evident. ABDOMINAL AORTA: There is no evidence of abdominal aortic aneurysm. IVC: Normal diameter where visualized. IMPRESSION: 1. The gallbladder surgically absent. The common hepatic duct is slightly prominent but this is mos t probably related to the post cholecystectomy status. 2. No other significant ultrasound findings in the upper abdomen. 3. There is no ascites. DATA REPOSITORY:
== END ==
PROVIDERS: PCP Family Medicine; Visit Provider Family Medicine
DX: R11.10 Vomiting, unspecified (principal); Z12.31 Encounter for screening mammogram for malignant neoplasm of breast
CPT/HCPCS: 77063; 77067; 76700

== ENCOUNTER → 2022-09-29 02:02 | Outpatient (CLI) | payer MEDICARE, SELFPAY ==
--- NOTE | 2022-09-29 06:45 | DI.DEXA_ITS ---
Exam(s) XR DEXA BONE DENSITY W/WO RONY EXAM: XR DEXA BONE DENSITY W/WO RONY CLINICAL HISTORY: osteoporosis,m81.0 TECHNIQUE: COMPARISON: No exams were available for comparison FINDINGS: Lateral Spine Image: Unremarkable. No compression deformities identified. Left hip: Total T-Score: -1.2 Total Z-Score: 0.2 T- and Z-scores: Findings are consistent with osteopenia. Lumbar Spine: Total T-Score: -0.2 Total Z-Score: 1.8 T- and Z-scores: Within normal limits. IMPRESSION: No evidence of osteoporosis.
== END ==
PROVIDERS: PCP Family Medicine; Visit Provider Family Medicine
DX: M85.88 Other specified disorders of bone density and structure, other site (principal); Z13.820 Encounter for screening for osteoporosis
CPT/HCPCS: 77080

== ENCOUNTER 2022-10-10 19:03 | Emergency (ER) | payer MEDICARE, SELFPAY ==
[2022-10-10 19:08] VITALS: BP 123/70; PULSE 72; RESP 16; TEMP 36.9; O2SAT 97
--- NOTE | 2022-10-10 19:23 | W.ED.GENAD ---
Discharge Plan Disposition Condition: Stable Discharge Details Chief Complaint: RashLesion Clinical Impression: Urticaria Primary Care Provider: Cristy Henry ED Provider: Federico Rodriges Home Meds and New Rx's Prescriptions: New prednisone 20 mg tablet 60 mg PO DAILY 4 Days Qty: 12 0RF Continued fexofenadine [Jenn Allergy] 180 mg tablet 180 mg PO DAILY PRN multivitamin [Daily Multi-Vitamin] Tablet 1 tab PO DAILY estradiol 0.01 % (0.1 mg/gram) cream 1 g vaginal .twice weekly Qty: 42.5 5RF naproxen sodium [Aleve] 220 mg capsule 220 mg PO Q12H Qty: 60 0RF cholecalciferol (vitamin D3) [Vitamin D3] 2,000 UNIT capsule 2,000 unit PO DAILY PRN Discharge Instructions Instructions: Urticaria (ED) Additional Instructions: you can take benadryl as needed for itching, follow dosing instructions on the packaging follow up with your primary care provider within 1 week if you feel more ill, have difficulty breathing, abdominal pain, vomiting or feel your tongue or throat swelling return to the emergency department Medical Decision Making 67 yo female with no significant chronic medical problems comes in with sudden onset of hives and itching of her skin while she was sitting on her couch watching a movie. She said all day she felt well, no new foods or known exposures to anything. She denies having this happen in the past. She arrives stable, speaking in full sentences. She denies chest pain, dyspnea, gi symptoms, tongue or throat swelling. She has on her arms, abdomen and back multiple various size circular mildly erythematous not warm to touch lesions that are minimially rasised and fabián, they do appear to be urticaria. She has no tongue swelling on exam, soft nontender abdomen, clear lungs. This appears to be some type of allergic reaction, doesn't appear to be anaphylaxis given no gi/respiratory symptoms and no oral or throat swelling. Will treat with oral benadryl, pepcid and prednisone and observe. Differential Diagnosis Differential Diagnosis: hives, allergic reaction Medical Records Medical records reviewed: Yes I reviewed the patient's medical records. Sign Out Yes HPI General Mode of arrival: ambulatory. Date/Time Provider Initiated Documentation: 10/10/22 19:04. Limitations to Documentation: no limitations. Information obtained by: patient. History of Present Illness 67 year old F presents to the emergency department with the chief complaint of rash, described as moderate, Patient started experiencing this hour(s) (1) and it has been constant. No relieving factors improve symptom(s), No exacerbating factors reported . Patient notes other (skin is itchy). Patient did receive the following treatments prior to arrival, none Related Data Home Medications Medication Instructions Recorded Confirmed cholecalciferol (vitamin D3) 50 2,000 unit PO DAILY PRN 04/13/13 09/01/22 mcg (2,000 unit) capsule (Vitamin D3) multivitamin (Daily Multi-Vitamin 1 tab PO DAILY 10/03/20 09/01/22 tablet) fexofenadine 180 mg tablet 180 mg PO DAILY PRN 10/02/21 09/01/22 (Jenn Allergy) naproxen sodium 220 mg capsule 220 mg PO Q12H #60 caps 10/02/21 09/01/22 (Aleve) estradiol 0.01% (0.1 mg/gram) 1 g vaginal .twice weekly #42.5 08/03/22 09/01/22 vaginal cream grams prednisone 20 mg tablet 60 mg PO DAILY 4 days #12 tabs 10/10/22 Previous Rx's Medication Instructions Recorded naproxen sodium 220 mg capsule 220 mg PO Q12H #60 caps 10/02/21 (Aleve) estradiol 0.01% (0.1 mg/gram) 1 g vaginal .twice weekly #42.5 08/03/22 vaginal cream grams prednisone 20 mg tablet 60 mg PO DAILY 4 days #12 tabs 10/10/22 Allergies Allergy/AdvReac Type Severity Reaction Status Date / Time MOLDS AND SMUTS Allergy Mild HEAD Uncoded 09/01/22 11:11 CONGESTION General Stated Complaint: RashLesion SANKET: 5 Review of Systems All systems reviewed & are unremarkable except as noted in HPI and below Constitutional Constitutional: Denies chills, Denies fever(s) and Denies weakness Cardiovascular Cardiovascular: Denies chest pain and Denies dyspnea Respiratory Respiratory: Denies cough and Denies dyspnea Gastrointestinal Gastrointestinal: Denies abdominal pain, Denies nausea and Denies vomiting Musculoskeletal Musculoskeletal: Denies joint swelling Neurologic Neurologic: Denies weakness PFSH All Active Problems (Updated 10/10/22 @ 19:30 by Federico Rodriges MD) Urticaria (Acute) Normal hearing exam (Acute) Vomiting (Acute) Bilateral shoulder pain (Acute) Tick bite of back (Acute) Strain of right trapezius muscle (Acute) Dermatitis (Acute) Tubular adenoma (Acute) Sacral pain (Acute) Sciatica (Acute) Grief reaction (Chronic) Hx of colonic polyps (Chronic) Rosacea (Acute) Intermittent dysphagia (Acute) worked up at [facility]- esophageal spasm Anal fissure (Acute) Polyp of colon (Acute 12/20/17) adenamatous polyp, tubular and sessile Medical History (Updated 10/10/22 @ 19:30 by Federico Rodriges MD) B12 deficiency Benign breast cyst in female Surgical History section X 3 Cholecystectomy (~2011) Colonoscopy - MAC (12/20/17) 2006- adenomatous polyps 2008-nl 06/01/14; [facility] History of colonoscopy with polypectomy (~08/01/21) Family History (Updated 07/17/21 @ 10:56 by LALITHA Gil) Mother , AGE 90 Colon cancer Hyperlipidemia Hypertension Lung cancer Father , AGE 89 Diabetes Stroke Alcohol abuse Sister Hyperlipidemia Malignant melanoma Brother Hyperlipidemia MS (multiple sclerosis) Sister Depression Cancer of spine Sister Depression Hyperlipidemia Maternal Grandfather , AGE 79 Heart disease Cancer Paternal Grandfather , AGE 74 Heart disease Maternal Grandmother , AGE 79 Stroke Paternal Grandmother , 40 CHILDBIRTH No problems noted. Daughter No problems noted. Daughter No problems noted. Daughter No problems noted. Paternal Uncle Colon cancer Social History Smoking/Tobacco Use Status: Never Second Hand Exposure: Yes Smoking risk assessment performed?: Yes Alcohol Intake: current Alcohol Intake frequency: a few times a week Alcohol type: wine Drug use: Never Substance use type: does not use Caregiver/Support person: No Household members: other Details: Daughter and Son in Law Housing: house Do you need help understanding health information?: Never current occupation: [employer] Pets and animals: Yes Pets and animals: cat(s) and dog(s) Sexually active: No Do you think of yourself as: straight/heterosexual Current gender identity: female What is your relationship status?: How often do you talk on the phone with friends or family?: three or more times per week How often do you get together with friends or relatives?: three or more times per week How often do you attend sabianist or anabaptist services?: decline to answer Do you belong to any clubs or organized social groups?: yes Panel score (0-1 are the most socially isolated patients): 2 What type of physical activity do you participate in: walking Duration: 30-45 minutes/day Frequency: daily Ciera/Restoration: Holiness Special ciera needs: No Seatbelt use: always Helmet use: Yes Helmet use: always Drive intox or ride w/intox clark driver: No Do you feel safe at home: Yes Do you feel safe in your relationship?: Yes Exam Const General: no acute distress Orientation: alert HENMT Head: normal to inspection Ears: external ears normal General nose exam: external nose normal Mouth: moist mucous membranes Eyes General: appearance normal, both eyes and all related structures Neck Neck: normal visual inspection Resp Effort & Inspection: normal respiratory effort and able to speak in complete sentences Cardio Jugular venous pressure: no JVD Rate: regular rate Heart Sounds: no murmurs GI Palpation: soft and nontender Skin General skin exam: elasticity normal Neuro General: patient alert and patient oriented x3 Extrem General: normal to inspection Psych Mental Status: mental status grossly normal Course Vital Signs Vital signs: Vital Signs Temperature 36.9 C 10/10/22 19:08 Pulse 72 10/10/22 19:08 Respiratory Rate 16 10/10/22 19:08 Blood Pressure 123/70 10/10/22 19:08 Pulse Oximetry 97 10/10/22 19:08 Temperature 36.9 C 10/10/22 19:08 Pulse 72 10/10/22 19:08 Respiratory Rate 16 10/10/22 19:08 Respiratory Effort 10/10/22 19:15 Blood Pressure 123/70 10/10/22 19:08 Pulse Oximetry 97 10/10/22 19:08 Pain Level 0 10/10/22 19:08
[2022-10-10] MEDS: Famotidine 20 MG TAB PO (19:29)
[2022-10-10] MEDS: diphenhydrAMINE 25 MG CAP PO (19:29)
[2022-10-10] MEDS: predniSONE 20 MG TAB 60 MG PO (19:29)
--- NOTE | 2022-10-10 21:12 | W.EDPROG ---
Date of service: 10/10/22 Time of Service: 21:12 Medical Decision Making Patient was signed out to me pending reassessment for rash. Patient's rash notably improved. Patient requested discharge. Patient discharged per plan. No evidence of anaphylaxis Sign Out No Sign Out Sign Out Data: Sign Out Comment: sudden onset urticaria an hour ago, no respiratory or gi symptoms, given po benadryl, pepcid and prendisone, plan to observe Last updated by Federico Rodriges MD at 10/10/22 19:35 Discharge Plan Disposition Patient Disposition: Home Condition: Stable Discharge Details Clinical Impression: Urticaria Primary Care Provider: Cristy Henry ED Provider: Danilo Molina Home Meds and New Rx's Prescriptions: New prednisone 20 mg tablet 60 mg PO DAILY 4 Days Qty: 12 0RF Continued fexofenadine [Jenn Allergy] 180 mg tablet 180 mg PO DAILY PRN multivitamin [Daily Multi-Vitamin] Tablet 1 tab PO DAILY estradiol 0.01 % (0.1 mg/gram) cream 1 g vaginal .twice weekly Qty: 42.5 5RF naproxen sodium [Aleve] 220 mg capsule 220 mg PO Q12H Qty: 60 0RF cholecalciferol (vitamin D3) [Vitamin D3] 2,000 UNIT capsule 2,000 unit PO DAILY PRN Discharge Instructions Instructions: Urticaria (ED) Additional Instructions: you can take benadryl as needed for itching, follow dosing instructions on the packaging follow up with your primary care provider within 1 week if you feel more ill, have difficulty breathing, abdominal pain, vomiting or feel your tongue or throat swelling return to the emergency department Referrals: Cristy Henry MD, [place] [Primary Care Provider] -
== END 2022-10-10 20:10 | disposition home or self-care (01) ==
PROVIDERS: Emergency Provider Student in an Organized Health Care Education/Training Program; PCP Family Medicine
DX: L50.8 Other urticaria (principal)
CPT/HCPCS: 99283; J7512

== ENCOUNTER 2023-06-14 12:44 | Outpatient (REF) | payer MEDICARE, SELFPAY | END 2023-06-14 12:45 | disposition home or self-care (01) | LOC: LBN 12:44 | PROVIDERS: PCP Family Medicine; Visit Provider Obstetrics & Gynecology | DX: N89.8 Other specified noninflammatory disorders of vagina (principal) | CPT/HCPCS: 87070; 87205; 87480; 87510; 87660 ==

== ENCOUNTER 2023-10-20 04:07 | Outpatient (CLI) | payer MEDICARE, SELFPAY ==
[2023-10-20 07:36] LABS: Calculated LDL 118 mg/dL (<100); Cholesterol 201 mg/dL (<200); HDL Cholesterol 67 mg/dL (40-60); Triglyceride 83 mg/dL (<150)
== END 2023-10-20 04:08 | disposition home or self-care (01) ==
LOC: LBO 04:08
PROVIDERS: PCP Family Medicine; Visit Provider Family Medicine
DX: I10 Essential (primary) hypertension (principal); E78.00 Pure hypercholesterolemia, unspecified
CPT/HCPCS: 36415; 80061

== ENCOUNTER 2024-07-20 01:18 | Outpatient (CLI) | payer MEDICARE, SELFPAY ==
--- NOTE | 2024-07-20 07:50 | DI.MAMMO_ITS ---
Exam(s) MAMMO SCREENING EXAM: MAMMO SCREENING CLINICAL HISTORY: screening Z12.31. TECHNIQUE: Bilateral full field digital CC and MLO mammographic images were obtained with 3D tomosyn thesis and utilizing computer aided detection (CAD). COMPARISON: Prior mammograms were reviewed. FINDINGS: There has been no significant change in the appearance and distribution of the fibroglandular tissue. There are no new spiculated masses nor malignant appearing microcalcification groups. There is no significant architectural distortion nor skin thickening-retraction. IMPRESSION: No radiographic evidence of malignancy. BI-RADS Category 1 - Negative Breast Density - Category B - Scattered areas of fibroglandular density Breast density Category C or D implies that the patient has dense breast tissue. Dense breast tissue can make it harder to find cancer on a mammogram. Dense breast tissue is also associated with an incr eased risk of breast cancer. This information about the result of the mammogram report was provided to the patient to raise their awareness. Use this report when you speak with the patient about their risks for breast cancer, which includes their family history. At that time, you may recommend additional screening tests (Ultrasoun d or MRI) as these tests may add significant information. A negative radiographic report should not delay biopsy if a dominant or clinically suspicious mass is present. Up to ten percent of cancers are not identified on mammography. A negative report may reinforce clinical impression. Adenosis and dense breasts may obscure an underlying neoplasm. False positive reports average 6 to 10%. Patient will receive a letter notifying them of these results.
== END 2024-07-20 01:38 ==
LOC: DI 01:18
PROVIDERS: PCP Family Medicine; Visit Provider Obstetrics & Gynecology
DX: Z12.31 Encounter for screening mammogram for malignant neoplasm of breast (principal)
CPT/HCPCS: 77063; 77067

== ENCOUNTER → 2024-09-12 08:25 | Outpatient (BNVA) | payer MEDICARE, SELFPAY | PROVIDERS: PCP Family Medicine; Referring Provider Family Medicine; Visit Provider Podiatrist | DX: L60.0 Ingrowing nail (principal); L60.3 Nail dystrophy; B35.1 Tinea unguium; M79.671 Pain in right foot; M79.672 Pain in left foot | CPT/HCPCS: 11750; 99214 ==

== ENCOUNTER → 2024-10-04 08:35 | Outpatient (BNVA) | payer MEDICARE, SELFPAY | PROVIDERS: PCP Family Medicine; Referring Provider Family Medicine; Visit Provider Podiatrist | DX: L60.0 Ingrowing nail (principal); L60.3 Nail dystrophy; B35.1 Tinea unguium; M79.671 Pain in right foot; M79.672 Pain in left foot | CPT/HCPCS: 11750 ==

== ENCOUNTER → 2024-11-07 08:54 | Outpatient (BNVA) | payer MEDICARE, SELFPAY | PROVIDERS: PCP Family Medicine; Referring Provider Family Medicine; Visit Provider Podiatrist | DX: M79.671 Pain in right foot (principal); M79.672 Pain in left foot; B35.1 Tinea unguium; L60.3 Nail dystrophy; L60.0 Ingrowing nail; G62.9 Polyneuropathy, unspecified | CPT/HCPCS: 99214 ==

== ENCOUNTER 2024-11-08 10:46 | Outpatient (CLI) | payer MEDICARE, SELFPAY ==
--- NOTE | 2024-11-08 09:30 | DI.RAD_ITS ---
Exam(s) XR FOOT LT COMPLETE EXAM: XR FOOT LT COMPLETE CLINICAL HISTORY: pain in both feet M79.672 PAIN LEFT FOOT. TECHNIQUE: 2D digital imaging was performed of the left foot. Three images were obtained. AP, obli que and lateral views were obtained. COMPARISON: CR LEFT FOOT COMPLETE from 10/07/2012 FINDINGS: BONES: No acute fracture is present. No bony destructive lesion is seen. There is an enthesophyte at the posterior calcaneus. An accessory ossicle is seen again at the dorsal aspect of the talonavicula r joint. JOINTS: No dislocation present. There is mild narrowing and small osteophyte at the 1st MTP joint. SOFT TISSUE: Normal. IMPRESSION: Mild degenerative changes seen at the 1st MTP joint. DATA REPOSITORY: RADIATION DOSE DELIVERED:
--- NOTE | 2024-11-08 09:30 | DI.RAD_ITS ---
Exam(s) XR FOOT RT COMPLETE EXAM: XR FOOT RT COMPLETE CLINICAL HISTORY: pain in both feet M79.671 PAIN RT FOOT. TECHNIQUE: 2D digital imaging was performed of the right foot. Three images were obtained. AP, obl ique and lateral views were obtained. COMPARISON: No exams were available for comparison FINDINGS: BONES: No acute fracture is present. No bony destructive lesion is seen. There is a small enthesophyt e at the posterior calcaneus. JOINTS: No dislocation present. Mild joint space narrowing and spurring is seen at the 1st MTP joint. The joint spaces are otherwise well maintained. SOFT TISSUE: Normal. IMPRESSION: Mild degenerative changes at the 1st MTP joint. DATA REPOSITORY: RADIATION DOSE DELIVERED:
== END 2024-11-08 11:06 ==
LOC: DI 10:47
PROVIDERS: PCP Family Medicine; Visit Provider Podiatrist
DX: M79.671 Pain in right foot (principal); M79.672 Pain in left foot
CPT/HCPCS: 73630

== ENCOUNTER 2024-11-08 10:52 | Outpatient (CLI) | payer MEDICARE, SELFPAY ==
[2024-11-08 10:40] LABS: Hemoglobin A1C 5.2 % (<5.7)
[2024-11-08 11:22] LABS: TSH (W/Ref FT4) 2.26 uIU/mL (0.36-3.74); Vitamin B12 271 pg/mL (193-986)
[2024-11-10 09:11] LABS: Apolipoprotein A1, S 166 mg/dL (>=140); Apolipoprotein B, S 94 mg/dL (See Comment); Apolipoprotein B/A 1 ratio 0.6 (See Comment)
== END 2024-11-08 10:53 | disposition home or self-care (01) ==
LOC: LBO 10:53
PROVIDERS: Podiatrist; PCP Family Medicine; Visit Provider Family Medicine
DX: E03.9 Hypothyroidism, unspecified (principal); G62.9 Polyneuropathy, unspecified; E78.00 Pure hypercholesterolemia, unspecified; L97.522 Non-pressure chronic ulcer of other part of left foot with fat layer exposed
CPT/HCPCS: 36415; 82172; 82607; 83036; 84443

== ENCOUNTER → 2024-12-05 08:03 | Outpatient (BNVA) | payer MEDICARE, SELFPAY | PROVIDERS: PCP Family Medicine; Referring Provider Family Medicine; Visit Provider Podiatrist | DX: M79.671 Pain in right foot (principal); M79.672 Pain in left foot; B35.1 Tinea unguium; L60.3 Nail dystrophy; L60.0 Ingrowing nail; G62.9 Polyneuropathy, unspecified | CPT/HCPCS: 99213 ==

== ENCOUNTER 2025-04-23 02:12 | Outpatient (CLI) | payer MEDICARE, SELFPAY ==
--- NOTE | 2025-04-23 08:00 | DI.RAD_ITS ---
Exam(s) XR FOOT LT COMPLETE EXAM: XR FOOT LT COMPLETE CLINICAL HISTORY: Pain in left foot, M79.672. TECHNIQUE: 2D digital imaging was performed of the left foot. Three images were obtained. AP, oblique and lateral views were obtained. COMPARISON: CR XR FOOT LT COMPLETE from 11/08/2024 FINDINGS: BONES: No acute fracture is present. No bony destructive lesion is seen. There is a small enthesophyte at the posterior calcaneus. JOINTS: No dislocation present. There are stable mild degenerative changes seen at the 1st MTP joint. The joint spaces are otherwise well maintained. SOFT TISSUE: Normal. IMPRESSION: Stable mild degenerative changes of the 1st MTP joint. DATA REPOSITORY: RADIATION DOSE DELIVERED:
== END 2025-04-23 02:32 ==
LOC: DI 02:12
PROVIDERS: PCP Family Medicine; Visit Provider Podiatrist
DX: M79.672 Pain in left foot (principal)
CPT/HCPCS: 73630

== ENCOUNTER 2025-05-09 02:11 | Outpatient (CLI) | payer MEDICARE, SELFPAY ==
--- NOTE | 2025-05-09 06:45 | DI.MRI_ITS ---
Exam(s) MR LOWER EXTREMITY LT WO EXAM: MR LOWER EXTREMITY LT WO CLINICAL HISTORY: Midfoot pain,EXTENSOR TENDINITIS FOOT,STRESS FX,METATARSALGIA, TECHNIQUE: Multiplanar multisequence MRI was performed without intravenous contrast. COMPARISON: CR XR FOOT LT COMPLETE from 04/23/2025 FINDINGS: SKIN: No evidence of ulcer nor subcutaneous tract. BONES/JOINTS: No evidence of fracture nor bone contusion. No evidence of tarsal coalition. There is no evidence of para-articular ganglion cysts. There are mild-moderate degenerative changes at the great toe metatarsophalangeal joint. Some joint space narrowing and degenerative subarticular cysts are noted. There is also some degenerative signal in both sesamoid bones located subjacent to the great toe metatarsal head. The sesamoid bones maintain normal position. The flex or tendon at this level appears unremarkable. There is some thinning of the collateral ligament on the lateral side of this articulation. Metatarsal heads are intact with no evidence of avascular necrosis/Freiberg's infraction Some increased signal is seen within the phalanges of the 2nd, 3rd and 4th toes but this is only on the PD fat-sat views and not evident on the STIR images and thus is related to technical factors, specifically less than optimal fat suppression on the PD fat-sat sequences. LISFRANC JOINT/LIGAMENT: Intact SINUS TARSI: Normal fat signal content. No evidence of sinus tarsi ganglion cyst. LIGAMENTS: No obvious tears evident. PLANTAR FASCIA: Unremarkable. No abnormal signal nor nodularity nor abnormal thickening evident. Also no abnormal intraosseous signal in the inferior aspect of the calcaneus. MUSCULOTENDINOUS STRUCTURES: No tendon tears nor tenosynovitis evident. No evidence of extensor or tendinitis/tenosynovitis, as per request. SOFT TISSUES: No evidence of Hong's interdigital neuroma. There is, however, intermediate subcutaneous signal abnormality on the plantar aspect of the foot subjacent to the heads of the metatarsals, most prominent subjacent to the great toe metatarsal although lesser amount of similar finding is seen subjacent to the heads of the 2nd and 3rd metatarsals. The subjacent flexor tendons are intact with no evidence of tears nor tenosynovitis. There is some fluid signal between the heads of the 2nd and 3rd metatarsals and between the head of the 3rd and 4th metatarsals, consistent with mild interdigital bursitis. OTHER FINDINGS: None. IMPRESSION: 1. Moderate degenerative changes in the great toe metatarsophalangeal joint. Also some signal abnormality in the superior aspect of both sesamoid bones subjacent to the great toe metatarsal head at this level, most probably also related to degenerative change. 2. No evidence of stress fracture or avascular necrosis of the metatarsal bones. 3. Mild intermetatarsal bursitis between the heads of the 2nd -3rd and 3rd- 4th metatarsals. There is no evidence of Hong's interdigital neuroma. 4. There is nonspecific intermediate signal in the subcutaneous layer subjacent to the great toe metatarsal head and head of the 2nd metatarsal. This does not have the appearance of Hong's neuroma and most probably is consistent with callus DATA REPOSITORY:
--- NOTE | 2025-05-09 18:01 | DI.VRAD_ITS ---
PROCEDURE INFORMATION: Exam: MR Left Lower Extremity Other Than Joint Without Contrast; Foot Exam date and time: 05/09/2025 7:34 AM Age: 70 years old Clinical indication: Other: Metatarsalgia, extensor tendinitis TECHNIQUE: Imaging protocol: Magnetic resonance imaging of the left lower extremity without contrast. Exam focused on the foot. Total images: [id number] COMPARISON: CR XR FOOT LT COMPLETE 04/23/2025 12:46 PM FINDINGS: Bones/joints: No abnormal metatarsal signal. Small posterior tibiotalar joint effusion. Mild periarticular probable degenerative edema between middle and medial cuneiforms. First metatarsal head degenerative cyst. LIGAMENTS: Lisfranc ligament: Unremarkable. No evidence of tear. No significant extensor tendon abnormal signal or tenosynovitis. Achilles tendon: Edema pre Achilles fat pad. Peritendinous edema Achilles tendon. Soft tissues: Minimal fluid retrocalcaneal bursa. Plantar fascia: Unremarkable as visualized. IMPRESSION: 1. No metatarsal stress fracture or extensor tenosynovitis. 2. Achilles peritendinitis. Dictated and Authenticated by: Rl Javed MD. Orderin Helene Andrews MD
== END 2025-05-09 02:31 ==
LOC: DI 02:11
PROVIDERS: PCP Family Medicine; Visit Provider Podiatrist
DX: M77.8 Other enthesopathies, not elsewhere classified (principal); M25.572 Pain in left ankle and joints of left foot; M77.42 Metatarsalgia, left foot
CPT/HCPCS: 73718

== ENCOUNTER 2025-06-05 03:48 | Outpatient (CLI) | payer MEDICARE, SELFPAY ==
[2025-06-05 07:58] LABS: ALT 24 U/L (14-59); AST 18 U/L (15-37); Albumin 3.6 g/dL (3.4-5.0); Alkaline Phosphatase 78 U/L (46-116); Anion Gap 5.0 mmol/L (3-11); BUN 22 mg/dL (7-18); Bilirubin, Total 0.4 mg/dL (0.2-1.0); CO2 31.0 mmol/L (21.0-32.0); Calcium 8.8 mg/dL (8.5-10.1); Calculated LDL 105 mg/dL (<100); Chloride 106 mmol/L (98-107); Cholesterol 180 mg/dL (<200); Estimated GFR 67.92 (mL/min/1.73m2); Glucose 92 mg/dL (74-106); HDL Cholesterol 61 mg/dL (>or=50); Potassium 4.2 mmol/L (3.5-5.1); Sodium 142 mmol/L (136-145); Total Protein 6.9 g/dL (6.4-8.2); Triglyceride 70 mg/dL (<150)
== END 2025-06-05 03:49 | disposition home or self-care (01) ==
LOC: LBO 03:48
PROVIDERS: PCP Family Medicine; Visit Provider Family Medicine
DX: N28.9 Disorder of kidney and ureter, unspecified (principal); E78.00 Pure hypercholesterolemia, unspecified
CPT/HCPCS: 36415; 80053; 80061

== ENCOUNTER 2025-08-03 04:24 | Outpatient (CLI) | payer MEDICARE, SELFPAY ==
--- NOTE | 2025-08-03 06:26 | DI.RAD_ITS ---
Exam(s) XR ANKLE RT COMPLETE EXAM: XR ANKLE RT COMPLETE CLINICAL HISTORY: Fall with injury while hiking,rt ankle sprain,s93.401a. TECHNIQUE: 2D digital imaging was performed. COMPARISON: No exams were available for comparison FINDINGS: 3 views No evidence of fracture or widening the ankle mortise. Talar dome unremarkable. Tibiotalar joint appears unremarkable as does the subtalar joint. Slightly prominent posterior talar process noted. There is also an enthesophyte on the posterior calcaneus Achilles insertion site. There is a small inferior calcaneal spur. No obvious soft tissue swelling evident IMPRESSION: Findings as above but no acute osseous findings in the ankle. DATA REPOSITORY: RADIATION DOSE DELIVERED:
== END 2025-08-03 04:44 ==
LOC: DI 04:24
PROVIDERS: PCP Family Medicine; Visit Provider Nurse Practitioner Family
DX: S93.401A Sprain of unspecified ligament of right ankle, initial encounter (principal); X58.XXXA Exposure to other specified factors, initial encounter
CPT/HCPCS: 73610

== ENCOUNTER 2025-08-07 14:31 | Outpatient (REF) | payer MEDICARE, SELFPAY | END 2025-08-07 14:32 | disposition home or self-care (01) | LOC: LBN 14:31 | PROVIDERS: PCP Family Medicine; Visit Provider Nurse Practitioner Family | DX: R19.5 Other fecal abnormalities (principal); R19.7 Diarrhea, unspecified; T50.Z95A Adverse effect of other vaccines and biological substances, initial encounter | CPT/HCPCS: 87015; 87269; 87272; 87505 ==

== ENCOUNTER 2025-08-08 08:22 | Outpatient (REF) | payer MEDICARE, SELFPAY ==
[2025-08-08 21:10] LABS: Campylobacter PCR Negative (Negative); Shiga Toxin PCR Negative (Negative); Shigella/Enteroinvasive Ecoli Negative (Negative)
== END 2025-08-08 08:23 | disposition home or self-care (01) ==
LOC: LBN 08:22
PROVIDERS: PCP Family Medicine; Visit Provider Nurse Practitioner Family
DX: R19.7 Diarrhea, unspecified (principal)
CPT/HCPCS: 87505